=== PATIENT | male | born 1935 | race Caucasian/White ===

== ENCOUNTER 2021-06-28 23:28 | Observation (INO) ==
[2021-06-29 00:04] LABS: BASOPHILS % (AUTO) 0.5 % (0.2-1.0); EOSINOPHILS # (AUTO) 0.3 x10^3/uL (0.0-0.2); EOSINOPHILS % (AUTO) 3.9 % (0.9-2.9); HEMATOCRIT 44.1 % (42.0-54.0); HEMOGLOBIN 15.2 g/dL (13.5-18.0); LYMPHOCYTES # (AUTO) 0.7 X10^3/uL (1.3-2.9); LYMPHOCYTES % (AUTO) 8.6 % (21.0-51.0); MEAN CORPUSCULAR HEMOGLOBIN 31.8 pg (27.0-34.0); MEAN CORPUSCULAR HGB CONC 34.5 g/dL (33.0-35.0); MEAN CORPUSCULAR VOLUME 92.1 fL (80.0-100.0); MEAN PLATELET VOLUME 8.4 fL (7.4-11.0); MONOCYTES % (AUTO) 13.6 % (0.0-13.0); NEUTROPHILS # (AUTO) 5.6 x10^3/uL (2.2-4.8); NEUTROPHILS % (AUTO) 73.4 % (42.0-75.0); PLATELET COUNT 240 X10^3/uL (150.0-450.0); RED BLOOD COUNT 4.79 X10^6/uL (4.7-6.0); RED CELL DISTRIBUTION WIDTH 13.6 % (11.6-16.5); WHITE BLOOD COUNT 7.6 X10^3/uL (3.6-10.0)
--- NOTE | 2021-06-29 00:17 | DR.GENAD ---
HPI Time Seen Time Seen by Provider: 06/29/21 00:17 PCP Primary Care Physician: ROBERT HPI Comment HPI Comment: PATIENT IS 86YR OLD MALE WITH HISTORY OF CAD, S/P STENT TIMES 3, HTN AND BACK PAIN S/P SURGERY IN ER VIA EMS WITH GENERALIZED WEAKNESS, FREQUENT FALLS AND AMBULATORY DIFFICULTY FOR PAST FEW DAYS. PATIENT HAVE CHRONIC BACK PAIN BUT CARO ON DAILY MEDICATION FOR IT. CURRENTLY PRN ASPRIN IS HIS ONLY MEDICATION. DENIES FEVER. PATIENT SAID PAST FEW DAYS HAVING PROBLEM KEEPING HIMSELF STEADY WITHOUT FALLING. Complaint/Symptoms Chief Complaint Doctors Comments: GENERALIZED WEAKNESS AND FREQUENT FALLS PAST FEW DAYS. Chief Complaint:: EMS WAS DISPATCHED TO PTS HOME D/T GENERALIZED WEAKNESS AND PALENESS. PT STATES THAT HE HAS FALLEN TWICE TONIGHT AND ONCE EARLIER TODAY. PT UNABLE TO SIT UP IN BED ON HIS OWN. PT C/O OF BACK PAIN RATED 10/10. COVID-19 Coronavirus risk:travel/contact w/high risk person: No Has patient experienced Coronavirus symptoms: No Nurses notes reviewed Nurses Notes Review: Yes Source History Provided: Patient Mode of Arrival Mode of Arrival: EMS Timing Onset of Chief Complaint: 06/28/21 Came on: Suddenly Duration Duration: Constant Duration: Days Severity Severity: Moderate Modifying Factors Worsens:: EXERTION, Improves:: REST. Associated Signs and Symptoms Associated Signs and Symptoms: WEAKNESS. Other History Other History: CHRONIC BACK PAIN, S/P SURGERY, HTN, CAD, S/P CARDIAC STENTS. PMH PMH Past Medical History: Yes Past Medical History: Coronary Artery Disease and Hypertension Past Surgical History: Yes Surgical History: Angioplasty/Stents, Cholecystectomy and Ortho Surgery Past Surgical History Comment: STENTS X3, BACK SURGERY X3 Family History History of Family Medical Conditions: Yes Family Medical History: Coronary Artery Disease and Hypertension Social History Alcohol Use: None Do you use any recreational Drugs:: No Lives With: Family Lives Where: Home Travel Risk Coronavirus risk:travel/contact w/high risk person: No Has patient experienced Coronavirus symptoms: No Infectious screening Have you traveled outside the country in the last 6 months?: No Isolation: Standard ROS Review of Systems Constitutional: See HPI, Weakness and Fatigue; negative Fever Eyes: No Symptoms Reported and See HPI ENTM: No Symptoms Reported and See HPI; negative Nose Discharge and Nose Congestion Respiratoy: No Symptoms Reported, See HPI and Short of Breath (ON EXERTION.) Cardiovascular: No Symptoms Reported and See HPI; negative Edema and Palpitations Gastrointestinal/Abdominal: No Symptoms Reported and See HPI; negative Abdominal Pain, Diarrhea and Vomiting Genitourinary: No Symptoms Reported and See HPI; negative Dysuria Neurological: See HPI, Weakness and Dizziness Musculoskeletal: See HPI and Back Pain (LOWER BACK PAIN.) Integumentary: No Symptoms Reported and See HPI; negative Rash and Juandice Hematologic/Lymphatic: See HPI and Easy Bruising Endocrine: No Symptoms Reported and See HPI; negative Increased Thirst and Increased Urine Psychiatric: No Symptoms Reported and See HPI All Other Systems: Reviewed and Negative PE Vital Signs Vitals: Temperature 98.8 F Pulse Rate 75 Respiratory Rate 18 Blood Pressure 134/65 O2 Sat by Pulse Oximetry 100 General Limitations: No Limitations General Appearance: Alert and In Distress Head Head Exam: Normal Inspection, Atraumatic and Normocephalic Eyes Eye exam: Normal Appearance; negative Scleral Icterus and Conjunctival Injection ENT ENT Exam: Normal Exam, Normal Oropharynx, Normal External Ear Exam and TM's Normal Bilaterally External Ear Exam: Normal External Inspection; negative Mastoid Tenderness TM/Canal Exam: Bilateral: Normal Nose Exam: Normal Nose Exam and Other (NONE NOTED.) Mouth Exam: Normal Inspection; negative Lip Swelling and Tongue Swelling Throat Exam: Normal Inspection; negative Tonsillar Erythema, Tonsillomegaly and Tonsillar Exudate Neck Neck Exam: Normal Inspection and Trachea Midline; negative Tenderness Chest Chest Inspection: Normal Inspection and Symmetric Chest Wall Rise; negative Tenderness Respiratory Respiratory Exam: Normal Lung Sounds Bilat; negative Accessory Muscle Use, Chest Wall Tenderness and Respiratory Distress Respiratory Exam: Bilateral: Clear to Auscultation Cardiovascular Cardiovascular Exam: Regular Rate, Normal Rhythm and Normal Heart Sounds; negative Systolic Murmur and Diastolic Murmur Abdominal Exam Abdominal Exam: Normal Inspection, Normal Bowel Sounds and Soft; negative Tenderness Extremities Extremities Exam: Normal Inspection and Normal Capillary Refill Back Back Exam: Normal Inspection; negative (R) CVA Tenderness and (L) CVA Tenderness Neurologic Neurological Exam: Alert and Oriented X3; negative Motor Sensory Deficit Psychiatric Psychiatric Exam: Normal Affect and Normal Mood Skin Skin Exam: Warm, Dry, Intact and Normal Color MDM Differential Diagnosis Differential Diagnosis: GENERALIZED WEAKNESS, UTI, PNEUMONIA, MO, CHRONIC BACK PAIN/ ACUTE EXACERBN COURSE Treatment Treatment: SEE ORDERS. Consultation Consultation Comments: DISCUSSED PATIENT WITH DR. FRANCIS. HE WILL ADMIT PATIENT. Education/Counseling Education/Counseling: Patient and Family Educated On: Diagnosis ROR Labs Reviewed Laboratory Results Reviewed?: Yes Result Diagrams: 06/28/21 23:43 06/28/21 23:43 Laboratory: WBC 7.6 X10^3/uL (3.6-10.0) 06/28/21 23:43 RBC 4.79 X10^6/uL (4.7-6.0) 06/28/21 23:43 Hgb 15.2 g/dL (13.5-18.0) 06/28/21 23:43 Hct 44.1 % (42.0-54.0) 06/28/21 23:43 MCV 92.1 fL (80.0-100.0) 06/28/21 23:43 MCH 31.8 pg (27.0-34.0) 06/28/21 23:43 MCHC 34.5 g/dL (33.0-35.0) 06/28/21 23:43 RDW 13.6 % (11.6-16.5) 06/28/21 23:43 Plt Count 240 X10^3/uL (150.0-450.0) 06/28/21 23:43 MPV 8.4 fL (7.4-11.0) 06/28/21 23:43 Neut % (Auto) 73.4 % (42.0-75.0) 06/28/21 23:43 Lymph % (Auto) 8.6 % (21.0-51.0) L 06/28/21 23:43 Caroline % (Auto) 13.6 % (0.0-13.0) H 06/28/21 23:43 Eos % (Auto) 3.9 % (0.9-2.9) H 06/28/21 23:43 Baso % (Auto) 0.5 % (0.2-1.0) 06/28/21 23:43 Neut # (Auto) 5.6 x10^3/uL (2.2-4.8) H 06/28/21 23:43 Lymph # (Auto) 0.7 X10^3/uL (1.3-2.9) L 06/28/21 23:43 Caroline # (Auto) 1.0 x10^3/uL (0.3-0.8) H 06/28/21 23:43 Eos # (Auto) 0.3 x10^3/uL (0.0-0.2) H 06/28/21 23:43 Baso # (Auto) 0.0 X10^3/uL (0.0-0.1) 06/28/21 23:43 Absolute Nucleated RBC 0.9 /100WBC 06/28/21 23:43 Sodium 138 mmol/L (136-145) 06/28/21 23:43 Corrected Sodium 138 mmol/L (136-145) 06/28/21 23:43 Potassium 4.4 mmol/L (3.5-5.1) 06/28/21 23:43 Chloride 103 mmol/L (98-107) 06/28/21 23:43 Carbon Dioxide 23.6 mmol/L (21-32) 06/28/21 23:43 BUN 19 mg/dL (7-18) H 06/28/21 23:43 Creatinine 1.72 mg/dL (0.70-1.30) H 06/28/21 23:43 Est GFR (MDRD) Af Amer 49 (>60) L 06/28/21 23:43 Est GFR (MDRD) Non-Af 40 (>60) L 06/28/21 23:43 Glucose 120 mg/dL (65-99) H 06/28/21 23:43 Calcium 8.9 mg/dL (8.5-10.1) 06/28/21 23:43 Corrected Calcium TNP 06/28/21 23:43 Total Bilirubin 0.60 mg/dL (0.2-1.0) 06/28/21 23:43 AST 34 Units/L (15-37) 06/28/21 23:43 ALT 33 Units/L (12-78) 06/28/21 23:43 Alkaline Phosphatase 119 Units/L (46-116) H 06/28/21 23:43 Creatine Kinase 24 Units/L (39-308) L 06/28/21 23:43 CK-MB (CK-2) < 1.0 ng/mL (0-4.0) 06/28/21 23:43 CK/CKMB % Calc 4.2 % (<4) 06/28/21 23:43 Troponin I High Sens 18.4 ng/L (4.0-60.0) 06/28/21 23:43 Total Protein 7.2 g/dL (6.4-8.2) 06/28/21 23:43 Albumin 3.4 g/dL (3.4-5.0) 06/28/21 23:43 Globulin 3.8 g/dL (2.5-4.5) 06/28/21 23:43 Albumin/Globulin Ratio 0.9 Ratio (1.1-2.1) L 06/28/21 23:43 SARS CoV-2 RNA Rapid MIKE Positive (NEGATIVE) A 06/28/21 23:39 XRAY XRAY Interpreted by: Radiologist (REPORT NOTED AND DISCUSSED WITH PATIENT AND HIS BROTHER.) and Self EKG Rate: 101 [place]: Normal Rhythm: ST Block: 1 and IVCD Hypertrophy: None ST: Nonsp Opioid Opioid Risk Tool Age (Mathew box if 16-45): No History of Preadolescent Sexual Abuse: No Total: 0 Total Score Risk Category: Low Risk Copyright: Herman VERONICA predicting aberrant behaviors Diagnosis Discharge Problem: Generalized weakness, COVID-19 virus infection, Difficulty walking Chronic bilateral low back pain Qualifiers: Sciatica presence: without sciatica Qualified Code(s): M54.50 - Low back pain, unspecified
[2021-06-29 00:35] LABS: ALANINE AMINOTRANSFERASE 33 Units/L (12-78); ALBUMIN 3.4 g/dL (3.4-5.0); ALKALINE PHOSPHATASE 119 Units/L (46-116); ASPARTATE AMINO TRANSFERASE 34 Units/L (15-37); BLOOD UREA NITROGEN 19 mg/dL (7-18); CALCIUM 8.9 mg/dL (8.5-10.1); CARBON DIOXIDE 23.6 mmol/L (21-32); CHLORIDE 103 mmol/L (98-107); CKMB % 4.2 % (<4); COR NA(FOR HYPERGLY) 138 mmol/L (136-145); CREATINE KINASE 24 Units/L (39-308); CREATINE KINASE MB < 1.0 ng/mL (0-4.0); CREATININE 1.72 mg/dL (0.70-1.30); GLUCOSE 120 mg/dL (65-99); POTASSIUM 4.4 mmol/L (3.5-5.1); SODIUM 138 mmol/L (136-145); TOTAL PROTEIN 7.2 g/dL (6.4-8.2); eGFR NON BLACK RACES 40 (>60)
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
--- NOTE | 2021-06-29 03:27 | RAD ---
HISTORYWEAKNESS, FALL Relevant Clinical InformationSTUDYCHEST, 1 VIEWCOMPARISONFINDINGSThe trachea is midline. The cardiac silhouette is unremarkable. The lungs are clear without focal infiltrate or effusion. Pulmonary vasculature within normal limits. No pneumothorax. The bony thorax is unremarkable.IMPRESSIONNo acute cardiopulmonary findings .Electronically signed by: Jean Cervantes (Jun 29, 2021 03:25:50)
[2021-06-29] MEDS ORDERED: ZOFRAN INJ 4 MG VIAL ONE (04:23)
[2021-06-29] MEDS ORDERED: MORPHINE SULFATE INJ 2 MG INJ ONE (04:23)
[2021-06-29] MEDS ORDERED: MORPHINE SULFATE INJ 2 MG INJ IVP ONE (04:27)
[2021-06-29] MEDS ORDERED: ZOFRAN INJ 4 MG VIAL IVP ONE (04:27)
[2021-06-29] MEDS ORDERED: NS 1,000 ML IV 1,000 ML ONE (04:34)
[2021-06-29] MEDS: NS 1,000 ML IV 1,000 ML IV SCH ×2 (04:48→21:08)
[2021-06-29 06:26] VITALS: BMI 23.6
[2021-06-29] MEDS: SOLU-Medrol 40 MG VIAL IVP SCH ×3 (07:01→21:10)
[2021-06-29] MEDS: ZOSYN VIAL 3.375 GRAMS 3.375 G in NS 100 ML IV + SPIKE MINIBAG* 100 ML IV SCH ×3 (07:02→21:52)
[2021-06-29] MEDS: TRICOR TAB 160 MG PO SCH (08:21)
[2021-06-29] MEDS: PEPCID TAB 40 MG PO SCH ×2 (08:21→21:09)
[2021-06-29] MEDS: ASCORBIC ACID INJ MULTI-DOSE VIAL 1,500 MG in NS 100 ML IV 100 ML IV SCH ×3 (08:21→21:08)
[2021-06-29] MEDS: ZINC SULFATE PO SCH ×2 (08:22→21:09)
[2021-06-29] MEDS ORDERED: VITAMIN A PO SCH (09:00)
[2021-06-29] MEDS ORDERED: VITAMIN D (1.25MG) PO SCH (09:00)
[2021-06-29] MEDS ORDERED: VIBRAMYCIN PO SCH (09:00)
[2021-06-29] MEDS: BROVANA IN SCH ×2 (09:27→21:00)
[2021-06-29] MEDS: PULMICORT NEB TX 0.5 MG NEB SCH ×2 (09:27→21:00)
[2021-06-29] MEDS: LOVENOX INJ 30 MG SYR SC SCH ×2 (10:15→21:10)
[2021-06-29 10:31] LABS: ABG ALLEN TEST POS; ABG BASE EXCESS -1.6 mmol/L (-2.0-2.0); ABG HCO3 22.9 mmol/L (22-26)
[2021-06-29 16:09] LABS: BILIRUBIN,URINE NEGATIVE (NEGATIVE); BLOOD/HEMOGLOBIN,URINE NEGATIVE (NEGATIVE); GLUCOSE, URINE NEGATIVE (NEGATIVE); KETONES,URINE NEGATIVE (NEGATIVE); LEUKOCYTE ESTERASE ,URINE NEGATIVE (NEGATIVE); NITRITES,URINE NEGATIVE (NEGATIVE); PROTEIN,URINE NEGATIVE (NEGATIVE); UROBILINOGEN,URINE NORMAL (NORMAL)
[2021-06-29 16:16] LABS: APPEARANCE,URINE CLEAR (CLEAR); COLOR,URINE YELLOW (YELLOW)
[2021-06-29] MEDS ORDERED: REMDESIVIR IV ONE (16:28)
[2021-06-29] MEDS ORDERED: ZITHROMAX INJ 500 MG VIAL IV ONE (16:28)
[2021-06-29] MEDS ORDERED: NS 250 ML IV 500 ML IV ONE (16:29)
[2021-06-29] MEDS: ZITHROMAX INJ 500 MG VIAL 500 MG in NS 250 ML IV 250 ML IV SCH (16:34)
[2021-06-29] MEDS ORDERED: REMDESIVIR 200 MG in NS 250 ML IV 250 ML IV ONE (18:30)
[2021-06-30] MEDS: ASCORBIC ACID INJ MULTI-DOSE VIAL 1,500 MG in NS 100 ML IV 100 ML IV SCH ×4 (02:30→21:40)
--- NOTE | 2021-06-30 02:31 | DR.H&P ---
H&P - History & Physical for Day of: H&P Date: 06/29/21 - Chief Complaint Chief Complaint: sob, weakness - History of Present Illness History of Present Illness: Patient is an 86 year old white male who is being admitted dueto hypoxia, COVID, dyspnea, weakness. Patient reports he has been sick and then got extremely weak. At baseline patient reports weakness and difficulty ambulating with frequent falls. Patient ambulates with walker at home however even with walker he continues to fall. Patient reports history of spine issues and history of back surgery and chronic pain. COVID symptoms began a few days ago to include sob, cough, fatigue. PMH CAD, chronic low back pain, spine surgery. - Past Medical History Past Medical History: Coronary Artery Disease, Hypertension - Past Surgical History Surgical History: Angioplasty/Stents, Cholecystectomy, Ortho Surgery - Family History Family Medical History: Cancer, HI, Hypertension - Social History Type of Tobacco Use: Cigarettes How many years tobacco product used: 40 Alcohol Use: None Drug Use: None - Medications Home Medications: JACKELIN Inhibitors Allergy (Verified 06/29/21 09:28) CONTINUE taking the following medications allopurinol 300 mg PO DAILY 06/29/21 [History] amlodipine 5 mg PO DAILY 06/29/21 [History] aspirin 81 mg PO DAILY 06/29/21 [History] carvedilol 25 mg PO Q12H 06/29/21 [History] simvastatin 20 mg PO QHS 06/29/21 [History] - Review of Systems Constitutional: See HPI Eyes: See HPI ENT: See HPI Respiratory: See HPI Cardiovascular: See HPI Gastrointestinal: See HPI Genitourinary: See HPI Musculoskeletal: See HPI Skin: See HPI Neurological: See HPI - Physical Exam Vital Signs: Temperature 98.4 F Pulse Rate [Apical] 62 Pulse Rate 87 Respiratory Rate 15 Blood Pressure [Left Arm] 97/47 Blood Pressure 145/69 O2 Sat by Pulse Oximetry 94 Oriented: Normal, Time, Person, Place Eyes: Normal Ear: Normal Nose: Normal Throat: Red Respiratory: Rhonchi Throughout Cardiovascular: Normal : Normal Auscultation: Bowel Sounds: Normal Palpation: Normal Tenderness: Normal Skin: Decreased Turgur Musculoskeletal: Back:Thoracic, Back:Lumbar, Tender, Instability Psychiatric: Normal Mood Description: Calm Affect: Normal Speech Pattern: Clear, Appropriate - Assessment/Plan (1) Dyspnea Status: Acute (2) Hypoxia Status: Acute (3) Generalized weakness Status: Acute (4) COVID-19 virus infection Status: Acute Plan: IV abx and steroids. Cultures pending. Trend CXR and ABG. Trend labs. Supplemental oxygen. Remdesivir (5) Difficulty walking Status: Acute Plan: PT (6) KANNAN (acute kidney injury) Status: Acute Plan: Hydration - Allergies Allergies/Adverse Reactions: Allergies Allergy/AdvReac Type Severity Reaction Status Date / Time JACKELIN Inhibitors Allergy Verified 06/29/21 09:28
[2021-06-30] MEDS: ULTRAM PO PRN ×2 (02:34→19:31)
[2021-06-30] MEDS ORDERED: ZOCOR TAB 20 MG PO SCH (03:00)
[2021-06-30] MEDS ORDERED: COREG TAB 25 MG PO SCH (03:00)
[2021-06-30 05:09] LABS: BASOPHILS % (AUTO) 0.2 % (0.2-1.0); HEMATOCRIT 39.9 % (42.0-54.0); HEMOGLOBIN 13.6 g/dL (13.5-18.0); LYMPHOCYTES # (AUTO) 0.7 X10^3/uL (1.3-2.9); LYMPHOCYTES % (AUTO) 14.8 % (21.0-51.0); MEAN CORPUSCULAR HEMOGLOBIN 31.5 pg (27.0-34.0); MEAN CORPUSCULAR HGB CONC 34.1 g/dL (33.0-35.0); MEAN CORPUSCULAR VOLUME 92.6 fL (80.0-100.0); MEAN PLATELET VOLUME 8.9 fL (7.4-11.0); MONOCYTES # (AUTO) 0.2 x10^3/uL (0.3-0.8); MONOCYTES % (AUTO) 4.5 % (0.0-13.0); NEUTROPHILS # (AUTO) 3.6 x10^3/uL (2.2-4.8); NEUTROPHILS % (AUTO) 80.5 % (42.0-75.0); PLATELET COUNT 198 X10^3/uL (150.0-450.0); RED BLOOD COUNT 4.31 X10^6/uL (4.7-6.0); RED CELL DISTRIBUTION WIDTH 14.2 % (11.6-16.5); WHITE BLOOD COUNT 4.5 X10^3/uL (3.6-10.0)
[2021-06-30 05:11] LABS: ALBUMIN 2.7 g/dL (3.4-5.0); CALCIUM 8.2 mg/dL (8.5-10.1); CARBON DIOXIDE 22.2 mmol/L (21-32); COR CA(FOR HYPOALB) 9.2 mg/dL (8.5-10.1); CREATININE 2.01 mg/dL (0.70-1.30); POTASSIUM 4.3 mmol/L (3.5-5.1)
[2021-06-30 05:42] LABS: ABG ALLEN TEST POS; ABG BASE EXCESS -4.6 mmol/L (-2.0-2.0); ABG HCO3 20.3 mmol/L (22-26)
[2021-06-30] MEDS: SOLU-Medrol 40 MG VIAL IVP SCH ×3 (06:16→22:22)
[2021-06-30] MEDS: ZOSYN VIAL 3.375 GRAMS 3.375 G in NS 100 ML IV + SPIKE MINIBAG* 100 ML IV SCH ×3 (06:17→22:22)
--- NOTE | 2021-06-30 06:57 | RAD ---
HISTORYCOVID-19STUDYChest [id number]/13/2022FINDINGSContinued normal heart size and contour. There is no evidence for significant interstitial or airspace pulmonary involvement. No pleural fluid or pneumothorax noted.IMPRESSIONNo significant change or acute abnormality demonstrated.Electronically signed by: LAURA HERNANDEZ (Jun 30, 2021 06:56:09)
--- NOTE | 2021-06-30 07:00 | RAD ---
HISTORYFellSTUDYLumbar spine two viewsCOMPARISONLumbar CT 06/08/2021FINDINGSContinued normal segmentation and alignment without evidence for fracture or displacement. Stable position of surgical fusion hardware and intradiscal graft at L4-5, with laminectomy. Degenerative disc narrowing and osteophyte formation at T12-L1, and L5-S1.IMPRESSIONNo acute findings lumbar spine. Stable appearance of L4-5 fusion. Degenerative disc changes and spondylosis at thoracolumbar junction and L5-S1.Electronically signed by: LAURA HERNANDEZ (Jun 30, 2021 06:58:14)
[2021-06-30] MEDS: COREG TAB 25 MG PO SCH ×2 (08:55→21:40)
[2021-06-30] MEDS: ASPIRIN EC 81 MG PO SCH (08:55)
[2021-06-30] MEDS: LOVENOX INJ 30 MG SYR SC SCH (08:55)
[2021-06-30] MEDS: TRICOR TAB 160 MG PO SCH (08:56)
[2021-06-30] MEDS: NORVASC TAB 5 MG PO SCH (08:56)
[2021-06-30] MEDS: ZINC SULFATE PO SCH ×2 (08:56→21:41)
[2021-06-30] MEDS: ZITHROMAX INJ 500 MG VIAL 500 MG in NS 250 ML IV 250 ML IV SCH (08:56)
[2021-06-30] MEDS: REMDESIVIR 100 MG in NS 100 ML IV + SPIKE MINIBAG* 120 ML IV SCH (08:56)
[2021-06-30] MEDS: ZYLOPRIM PO SCH (08:56)
[2021-06-30] MEDS: PEPCID TAB 40 MG PO SCH ×2 (08:56→21:40)
[2021-06-30] MEDS ORDERED: REMDESIVIR 100 MG in NS 250 ML IV 250 ML IV SCH (09:00)
[2021-06-30] MEDS ORDERED: PATIENT'S HOME MEDICATION (Aspirin 81 mg Tablet) PO SCH (09:00)
[2021-06-30] MEDS: BROVANA IN SCH ×2 (09:15→20:44)
[2021-06-30] MEDS: PULMICORT NEB TX 0.5 MG NEB SCH ×2 (09:15→20:44)
[2021-06-30] MEDS ORDERED: LOVENOX INJ 30 MG SYR SC ONE (10:37)
[2021-06-30] MEDS: IVERMECTIN PO SCH (11:20)
[2021-06-30] MEDS: VITAMIN A PO SCH (11:20)
[2021-06-30] MEDS: NS 1,000 ML IV 1,000 ML IV SCH (14:27)
[2021-06-30] MEDS ORDERED: NORCO 5/325 MG TAB PO PRN (21:27)
[2021-06-30] MEDS: LOVENOX INJ 60 MG SYR SC SCH (21:40)
[2021-06-30] MEDS: ZOCOR TAB 20 MG PO SCH (21:41)
[2021-07-01] MEDS: ASCORBIC ACID INJ MULTI-DOSE VIAL 1,500 MG in NS 100 ML IV 100 ML IV SCH ×4 (02:32→21:02)
[2021-07-01] MEDS: NS 1,000 ML IV 1,000 ML IV SCH ×2 (02:32→13:07)
[2021-07-01] MEDS: ZOSYN VIAL 3.375 GRAMS 3.375 G in NS 100 ML IV + SPIKE MINIBAG* 100 ML IV SCH ×3 (05:25→21:06)
[2021-07-01] MEDS: SOLU-Medrol 40 MG VIAL IVP SCH ×3 (05:25→21:05)
[2021-07-01 05:34] LABS: BASOPHILS % (AUTO) 0.2 % (0.2-1.0); HEMATOCRIT 37.4 % (42.0-54.0); HEMOGLOBIN 12.6 g/dL (13.5-18.0); LYMPHOCYTES # (AUTO) 1.2 X10^3/uL (1.3-2.9); LYMPHOCYTES % (AUTO) 7.1 % (21.0-51.0); MEAN CORPUSCULAR HEMOGLOBIN 31.4 pg (27.0-34.0); MEAN CORPUSCULAR HGB CONC 33.6 g/dL (33.0-35.0); MEAN CORPUSCULAR VOLUME 93.2 fL (80.0-100.0); MEAN PLATELET VOLUME 9.2 fL (7.4-11.0); MONOCYTES # (AUTO) 0.6 x10^3/uL (0.3-0.8); MONOCYTES % (AUTO) 3.2 % (0.0-13.0); NEUTROPHILS # (AUTO) 15.3 x10^3/uL (2.2-4.8); NEUTROPHILS % (AUTO) 89.5 % (42.0-75.0); PLATELET COUNT 210 X10^3/uL (150.0-450.0); RED BLOOD COUNT 4.01 X10^6/uL (4.7-6.0); RED CELL DISTRIBUTION WIDTH 14.3 % (11.6-16.5)
[2021-07-01 05:44] LABS: ALBUMIN 2.4 g/dL (3.4-5.0); CALCIUM 7.7 mg/dL (8.5-10.1); CARBON DIOXIDE 21.7 mmol/L (21-32); CREATININE 1.78 mg/dL (0.70-1.30); TOTAL PROTEIN 5.3 g/dL (6.4-8.2)
[2021-07-01 06:19] LABS: WHITE BLOOD COUNT 17.1 X10^3/uL (3.6-10.0)
[2021-07-01] MEDS: BROVANA IN SCH ×2 (08:40→20:15)
[2021-07-01] MEDS: PULMICORT NEB TX 0.5 MG NEB SCH ×2 (08:40→20:15)
[2021-07-01] MEDS: ASPIRIN EC 81 MG PO SCH (10:24)
[2021-07-01] MEDS: COREG TAB 25 MG PO SCH ×2 (10:24→21:03)
[2021-07-01] MEDS: IVERMECTIN PO SCH (10:25)
[2021-07-01] MEDS: LOVENOX INJ 60 MG SYR SC SCH ×2 (10:25→21:04)
[2021-07-01] MEDS: NORVASC TAB 5 MG PO SCH (10:25)
[2021-07-01] MEDS: PEPCID TAB 40 MG PO SCH ×2 (10:26→21:04)
[2021-07-01] MEDS: VITAMIN A PO SCH ×2 (10:26→10:28)
[2021-07-01] MEDS: TRICOR TAB 160 MG PO SCH (10:26)
[2021-07-01] MEDS: REMDESIVIR 100 MG in NS 100 ML IV + SPIKE MINIBAG* 120 ML IV SCH (10:26)
[2021-07-01] MEDS: VITAMIN D3 125 mcg (5,000 UNITS) PO SCH (10:27)
[2021-07-01] MEDS: ZINC SULFATE PO SCH ×2 (10:28→21:04)
[2021-07-01] MEDS: ZYLOPRIM PO SCH (10:28)
[2021-07-01] MEDS: VSL#3 PO SCH (10:30)
[2021-07-01] MEDS ORDERED: NS 100 ML IV + SPIKE MINIBAG* 100 ML IV ONE (20:49)
[2021-07-01] MEDS: ZOCOR TAB 20 MG PO SCH (21:05)
[2021-07-02] MEDS: ASCORBIC ACID INJ MULTI-DOSE VIAL 1,500 MG in NS 100 ML IV 100 ML IV SCH ×4 (02:43→21:10)
[2021-07-02] MEDS: NS 1,000 ML IV 1,000 ML IV SCH (04:54)
[2021-07-02] MEDS: SOLU-Medrol 40 MG VIAL IVP SCH ×3 (05:00→21:10)
[2021-07-02] MEDS: ZOSYN VIAL 3.375 GRAMS 3.375 G in NS 100 ML IV + SPIKE MINIBAG* 100 ML IV SCH ×3 (05:01→21:10)
[2021-07-02 05:19] LABS: BASOPHILS % (AUTO) 0.2 % (0.2-1.0); HEMATOCRIT 40.7 % (42.0-54.0); HEMOGLOBIN 13.6 g/dL (13.5-18.0); LYMPHOCYTES # (AUTO) 1.3 X10^3/uL (1.3-2.9); LYMPHOCYTES % (AUTO) 7.3 % (21.0-51.0); MEAN CORPUSCULAR HEMOGLOBIN 30.8 pg (27.0-34.0); MEAN CORPUSCULAR HGB CONC 33.4 g/dL (33.0-35.0); MEAN CORPUSCULAR VOLUME 92.1 fL (80.0-100.0); MEAN PLATELET VOLUME 9.4 fL (7.4-11.0); MONOCYTES # (AUTO) 0.5 x10^3/uL (0.3-0.8); NEUTROPHILS # (AUTO) 15.9 x10^3/uL (2.2-4.8); NEUTROPHILS % (AUTO) 89.5 % (42.0-75.0); PLATELET COUNT 209 X10^3/uL (150.0-450.0); RED BLOOD COUNT 4.42 X10^6/uL (4.7-6.0); RED CELL DISTRIBUTION WIDTH 14.8 % (11.6-16.5); WHITE BLOOD COUNT 17.7 X10^3/uL (3.6-10.0)
[2021-07-02 05:27] LABS: ALBUMIN 2.5 g/dL (3.4-5.0); CALCIUM 7.6 mg/dL (8.5-10.1); CARBON DIOXIDE 20.6 mmol/L (21-32); COR CA(FOR HYPOALB) 8.8 mg/dL (8.5-10.1); CREATININE 1.76 mg/dL (0.70-1.30); POTASSIUM 3.4 mmol/L (3.5-5.1); TOTAL PROTEIN 5.5 g/dL (6.4-8.2)
[2021-07-02] MEDS ORDERED: POTASSIUM CHL 40 MEQ/NS 0.45% 500 ML IV PRN (06:51)
[2021-07-02] MEDS ORDERED: POTASSIUM CHL 60 MEQ/NS 0.45% 500 ML IV PRN (06:51)
[2021-07-02] MEDS ORDERED: KLOR-CON PO PRN (06:51)
[2021-07-02] MEDS ORDERED: MICRO K EXTEN CAP 10 MEQ PO PRN (06:51)
[2021-07-02] MEDS ORDERED: POTASSIUM CHLORIDE LIQ PO PRN (06:51)
[2021-07-02] MEDS ORDERED: K-RIDER 10 MEQ/NS 100 ML 10 MEQ/100 ML BAG IV PRN (06:51)
[2021-07-02] MEDS ORDERED: K-DUR TAB 20 MEQ PO PRN (06:51)
[2021-07-02] MEDS ORDERED: MAGNESIUM SULFATE 1 GRAM/100 mL PREMIX 1 G/100 ML BAG IV PRN (06:53)
[2021-07-02] MEDS: ZITHROMAX INJ 500 MG VIAL 500 MG in NS 250 ML IV 250 ML IV SCH (07:43)
[2021-07-02] MEDS: BROVANA IN SCH ×2 (08:24→21:15)
[2021-07-02] MEDS: PULMICORT NEB TX 0.5 MG NEB SCH ×2 (08:25→21:15)
[2021-07-02] MEDS: ASPIRIN EC 81 MG PO SCH (09:39)
[2021-07-02] MEDS: COREG TAB 25 MG PO SCH ×2 (09:40→21:10)
[2021-07-02] MEDS: ZINC SULFATE PO SCH ×2 (09:40→21:10)
[2021-07-02] MEDS: IVERMECTIN PO SCH (09:40)
[2021-07-02] MEDS: PEPCID TAB 40 MG PO SCH ×2 (09:40→21:10)
[2021-07-02] MEDS: NORVASC TAB 5 MG PO SCH (09:40)
[2021-07-02] MEDS: ZYLOPRIM PO SCH (09:41)
[2021-07-02] MEDS: TRICOR TAB 160 MG PO SCH (09:41)
[2021-07-02] MEDS: VSL#3 PO SCH (09:41)
[2021-07-02] MEDS: REMDESIVIR 100 MG in NS 100 ML IV + SPIKE MINIBAG* 120 ML IV SCH (09:41)
[2021-07-02] MEDS: VITAMIN D3 125 mcg (5,000 UNITS) PO SCH (09:41)
[2021-07-02] MEDS: VITAMIN A PO SCH ×2 (09:41)
[2021-07-02] MEDS: LOVENOX INJ 30 MG SYR SC SCH (09:44)
[2021-07-02 09:49] LABS: ABG ALLEN TEST POS; ABG BASE EXCESS -2.9 mmol/L (-2.0-2.0); ABG HCO3 20.8 mmol/L (22-26)
--- NOTE | 2021-07-02 13:38 | PCM.PROG ---
Progress Note - Subjective Subjective: Patient is an 86 year old white male who was admitted due to covid. Patient is being treated with IV abx and steroids, oxygen and duo nebs. Patient reports he does feel bad today. Patient continues to be weak with limited ability to ambulate well. PT has been consulted. WBC elevated likely steroid induced. Questions answered and concerns addressed. - Past Medical Family Social History Past Med/Fam/Surg Hx: No changes since H&P Allergies: Allergies JACKELIN Inhibitors Allergy (Verified 06/29/21 09:28) - Review of Systems ROS: No change since H&P - Vital Signs and I&O's Vital Signs: Temperature 97.8 F Pulse Rate [Apical] 76 Pulse Rate 94 Respiratory Rate 16 Blood Pressure [Left Arm] 186/82 Blood Pressure 145/69 O2 Sat by Pulse Oximetry 95 Intake and Output: Intake & Output 06/29/21 06/30/21 07/01/21 07/02/21 23:59 23:59 23:59 23:59 Intake Total 2580 / 2580 2550 / 2550 3304 / 3304 488 / 488 Output Total 350 / 350 Balance 2230 / 2230 2550 / 2550 3304 / 3304 488 / 488 - Physical Exam Oriented: Normal, Time, Person, Place Eyes: Normal Ear: Normal Nose: Normal Throat: Normal Respiratory: Generalized, Rhonchi Cardiovascular: Normal : Normal Auscultation: Bowel Sounds: Normal Palpation: Normal Tenderness: Normal Skin: Decreased Turgur Musculoskeletal: Back:Thoracic, Back:Lumbar, Tender, Instability Psychiatric: Normal Mood Description: Calm Affect: Normal Speech Pattern: Clear, Appropriate - Laboratory and Diagnostics Result Diagrams: 07/02/21 04:37 07/02/21 04:37 Labs: Laboratory WBC 17.7 X10^3/uL (3.6-10.0) H 07/02/21 04:37 RBC 4.42 X10^6/uL (4.7-6.0) L 07/02/21 04:37 Hgb 13.6 g/dL (13.5-18.0) 07/02/21 04:37 Hct 40.7 % (42.0-54.0) L 07/02/21 04:37 MCV 92.1 fL (80.0-100.0) 07/02/21 04:37 MCH 30.8 pg (27.0-34.0) 07/02/21 04:37 MCHC 33.4 g/dL (33.0-35.0) 07/02/21 04:37 RDW 14.8 % (11.6-16.5) 07/02/21 04:37 Plt Count 209 X10^3/uL (150.0-450.0) 07/02/21 04:37 MPV 9.4 fL (7.4-11.0) 07/02/21 04:37 Neut % (Auto) 89.5 % (42.0-75.0) H 07/02/21 04:37 Lymph % (Auto) 7.3 % (21.0-51.0) L 07/02/21 04:37 [place] % (Auto) 3.0 % (0.0-13.0) 07/02/21 04:37 Eos % (Auto) 0.0 % (0.9-2.9) L 07/02/21 04:37 Baso % (Auto) 0.2 % (0.2-1.0) 07/02/21 04:37 Neut # (Auto) 15.9 x10^3/uL (2.2-4.8) H 07/02/21 04:37 Lymph # (Auto) 1.3 X10^3/uL (1.3-2.9) 07/02/21 04:37 [place] # (Auto) 0.5 x10^3/uL (0.3-0.8) 07/02/21 04:37 Eos # (Auto) 0.0 x10^3/uL (0.0-0.2) 07/02/21 04:37 Baso # (Auto) 0.0 X10^3/uL (0.0-0.1) 07/02/21 04:37 Absolute Nucleated RBC 0.0 /100WBC 07/02/21 04:37 Sample Site Lr 07/02/21 09:43 ABG pH 7.420 (7.35-7.45) 07/02/21 09:43 ABG pCO2 32.0 mmHg (35.0-45.0) L 07/02/21 09:43 ABG pO2 85.0 mmHg (80.0-100.0) 07/02/21 09:43 ABG HCO3 20.8 mmol/L (22-26) L 07/02/21 09:43 ABG O2 Saturation 97.0 % (90-100) 07/02/21 09:43 ABG Base Excess -2.9 mmol/L (-2.0-2.0) L 07/02/21 09:43 Sha Test Pos 07/02/21 09:43 A-a Gradient 75.0 mmHg 07/02/21 09:43 FiO2 28.0 07/02/21 09:43 Blood Gas Comments Pt hermelindo well cdn 07/02/21 09:43 Sodium 148 mmol/L (136-145) H 07/02/21 04:37 Corrected Sodium 149 mmol/L (136-145) H 07/02/21 04:37 Potassium 3.4 mmol/L (3.5-5.1) L 07/02/21 04:37 Chloride 114 mmol/L (98-107) H 07/02/21 04:37 Carbon Dioxide 20.6 mmol/L (21-32) L 07/02/21 04:37 BUN 23 mg/dL (7-18) H 07/02/21 04:37 Creatinine 1.76 mg/dL (0.70-1.30) H 07/02/21 04:37 Est GFR (MDRD) Af Amer 48 (>60) L 07/02/21 04:37 Est GFR (MDRD) Non-Af 39 (>60) L 07/02/21 04:37 Glucose 143 mg/dL (65-99) H 07/02/21 04:37 Calcium 7.6 mg/dL (8.5-10.1) L 07/02/21 04:37 Corrected Calcium 8.8 mg/dL (8.5-10.1) 07/02/21 04:37 Magnesium 1.5 mg/dL (1.7-2.9) L 07/02/21 04:37 Total Bilirubin 0.30 mg/dL (0.2-1.0) 07/02/21 04:37 AST 19 Units/L (15-37) 07/02/21 04:37 ALT 30 Units/L (12-78) 07/02/21 04:37 Alkaline Phosphatase 85 Units/L (46-116) 07/02/21 04:37 Creatine Kinase 24 Units/L (39-308) L 06/28/21 23:43 CK-MB (CK-2) < 1.0 ng/mL (0-4.0) 06/28/21 23:43 CK/CKMB % Calc 4.2 % (<4) 06/28/21 23:43 Troponin I High Sens 18.4 ng/L (4.0-60.0) 06/28/21 23:43 C-Reactive Protein 5.80 mg/L (0-3.0) H 07/02/21 04:37 Total Protein 5.5 g/dL (6.4-8.2) L 07/02/21 04:37 Albumin 2.5 g/dL (3.4-5.0) L 07/02/21 04:37 Globulin 3.0 g/dL (2.5-4.5) 07/02/21 04:37 Albumin/Globulin Ratio 0.8 Ratio (1.1-2.1) L 07/02/21 04:37 Specimen Type Clean catch urine 06/29/21 15:58 Urine Color Yellow (YELLOW) 06/29/21 15:58 Urine Appearance Clear (CLEAR) 06/29/21 15:58 Urine pH 5.0 (5.0 - 8.0) 06/29/21 15:58 Ur Specific [place] 1.020 (1.000-1.030) 06/29/21 15:58 Urine Protein Negative (NEGATIVE) 06/29/21 15:58 Urine Glucose (UA) Negative (NEGATIVE) 06/29/21 15:58 Urine Ketones Negative (NEGATIVE) 06/29/21 15:58 Urine Occult Blood Negative (NEGATIVE) 06/29/21 15:58 Urine Nitrite Negative (NEGATIVE) 06/29/21 15:58 Urine Bilirubin Negative (NEGATIVE) 06/29/21 15:58 Urine Urobilinogen Normal (NORMAL) 06/29/21 15:58 Ur Leukocyte Esterase Negative (NEGATIVE) 06/29/21 15:58 SARS CoV-2 RNA Rapid MIKE Positive (NEGATIVE) A 06/28/21 23:39 - Plan (1) Dyspnea Status: Acute Plan: Trend ABG and CXR. Supplemental oxygen. Duo nebs (2) Hypoxia Status: Acute Plan: See above (3) Generalized weakness Status: Acute Plan: PT (4) COVID-19 virus infection Status: Acute Plan: IV abx and steroids. Trend CXR and ABG. Trend labs. Supplemental oxygen. Remdesivir-complete (5) Difficulty walking Status: Acute Plan: Lumbar imaging negative for acute findings. PT (6) KANNAN (acute kidney injury) Status: Acute Plan: Hydration (7) Leukocytosis Status: Acute Plan: Likely steroid induced; monitor. Decrease steroids (8) CKD (chronic kidney disease) Status: Acute Plan: Monitor
[2021-07-02] MEDS ORDERED: NS 50 ML IV 50 ML IV ONE (14:09)
[2021-07-02] MEDS: LOVENOX INJ 60 MG SYR SC SCH (14:29)
[2021-07-02] MEDS ORDERED: NS IV ONE (21:01)
[2021-07-02] MEDS: ZOCOR TAB 20 MG PO SCH (21:10)
[2021-07-03] MEDS ORDERED: NS IV ONE (02:28)
[2021-07-03] MEDS: ASCORBIC ACID INJ MULTI-DOSE VIAL 1,500 MG in NS 100 ML IV 100 ML IV SCH ×2 (03:00→09:16)
[2021-07-03] MEDS ORDERED: NS 100 ML IV + SPIKE MINIBAG* 100 ML IV ONE (04:46)
[2021-07-03 04:52] LABS: ABG ALLEN TEST POS; ABG BASE EXCESS -2.8 mmol/L (-2.0-2.0); ABG HCO3 20.6 mmol/L (22-26)
[2021-07-03 05:19] LABS: BASOPHILS # (AUTO) 0.1 X10^3/uL (0.0-0.1); BASOPHILS % (AUTO) 0.9 % (0.2-1.0); HEMATOCRIT 38.8 % (42.0-54.0); HEMOGLOBIN 13.2 g/dL (13.5-18.0); LYMPHOCYTES % (AUTO) 7.1 % (21.0-51.0); MEAN CORPUSCULAR HEMOGLOBIN 31.3 pg (27.0-34.0); MEAN CORPUSCULAR HGB CONC 34.1 g/dL (33.0-35.0); MEAN CORPUSCULAR VOLUME 91.8 fL (80.0-100.0); MEAN PLATELET VOLUME 9.9 fL (7.4-11.0); MONOCYTES # (AUTO) 0.4 x10^3/uL (0.3-0.8); MONOCYTES % (AUTO) 2.6 % (0.0-13.0); NEUTROPHILS # (AUTO) 12.2 x10^3/uL (2.2-4.8); NEUTROPHILS % (AUTO) 89.4 % (42.0-75.0); PLATELET COUNT 192 X10^3/uL (150.0-450.0); RED BLOOD COUNT 4.23 X10^6/uL (4.7-6.0); RED CELL DISTRIBUTION WIDTH 14.7 % (11.6-16.5); WHITE BLOOD COUNT 13.6 X10^3/uL (3.6-10.0)
[2021-07-03] MEDS: ZOSYN VIAL 3.375 GRAMS 3.375 G in NS 100 ML IV + SPIKE MINIBAG* 100 ML IV SCH (05:34)
[2021-07-03] MEDS: SOLU-Medrol 40 MG VIAL IVP SCH (05:34)
[2021-07-03 05:36] LABS: ALBUMIN 2.3 g/dL (3.4-5.0); CALCIUM 7.5 mg/dL (8.5-10.1); CARBON DIOXIDE 20.6 mmol/L (21-32); COR CA(FOR HYPOALB) 8.9 mg/dL (8.5-10.1); CREATININE 1.74 mg/dL (0.70-1.30); MAGNESIUM 1.9 mg/dL (1.7-2.9); POTASSIUM 3.5 mmol/L (3.5-5.1); TOTAL PROTEIN 5.3 g/dL (6.4-8.2)
[2021-07-03 05:47] LABS: PLATELET MORPHOLOGY COMMENT NORMAL (NORMAL)
--- NOTE | 2021-07-03 07:39 | RAD ---
HISTORYCOVID+STUDYCHEST, 1 [id number]/15/2022.TECHNIQUEAP view of the chestFINDINGSThe cardiac and mediastinal contours appear stable. No significant change in mild scattered hazy and interstitial pulmonary opacities. No definite pleural effusion or pneumothorax.IMPRESSIONNo significant change. Findings can be seen with mild COVID 19 pneumonia.Electronically signed by: Abhishek Macias (Jul 03, 2021 07:38:01)
[2021-07-03] MEDS ORDERED: PEPCID TAB 40 MG PO SCH (09:00)
[2021-07-03] MEDS: ASPIRIN EC 81 MG PO SCH (09:16)
[2021-07-03] MEDS: COREG TAB 25 MG PO SCH (09:16)
[2021-07-03] MEDS: LOVENOX INJ 30 MG SYR SC SCH (09:16)
[2021-07-03] MEDS: NORVASC TAB 5 MG PO SCH (09:16)
[2021-07-03] MEDS: TRICOR TAB 160 MG PO SCH (09:17)
[2021-07-03] MEDS: REMDESIVIR 100 MG in NS 100 ML IV + SPIKE MINIBAG* 120 ML IV SCH (09:17)
[2021-07-03] MEDS: ZINC SULFATE PO SCH (09:18)
[2021-07-03] MEDS: ZYLOPRIM PO SCH (09:18)
[2021-07-03] MEDS: VSL#3 PO SCH (09:18)
[2021-07-03] MEDS: VITAMIN D3 125 mcg (5,000 UNITS) PO SCH (09:18)
[2021-07-03] MEDS: VITAMIN A PO SCH ×2 (09:20)
[2021-07-03] MEDS: BROVANA IN SCH (09:35)
[2021-07-03] MEDS: PULMICORT NEB TX 0.5 MG NEB SCH (09:35)
--- NOTE | 2021-07-03 10:54 | W.DIS.FURT ---
Discharge Plan - Discharge Plan Hospital Course: Admit date 06/29/21 Discharge date 07/03/21 DOS 07/03/21 Admit diagnosis1) Dyspnea (2) Hypoxia (3) Generalized weakness (4) COVID-19 virus infection (5) Difficulty walking (6) KANNAN (acute kidney injury) Discharge diagnosis1) Dyspnea (2) Hypoxia (3) Generalized weakness (4) COVID-19 virus infection (5) Difficulty walking (6) KANNAN (acute kidney injury) (7) Leukocytosis (8) CKD (chronic kidney disease) Hospital course Patient is a 86 year old male who was admitted due to frequent falls and generalized weakness. Patient did test positive for COVID 19. CT brain negative for acute process. Cultures negative. ABG normal, labs improved. WBC did elevated which is likely secondary to steroids; quickly improved. PT evaluated patient. Patient does have chronic lumbar diagnosis; xray did not reveal acute fracture. Patient was discharged home to follow up outpatient with antibiotics. Patient tolerated nasal cannula and room air oxygen. Discharge time >35mins. Disposition: [address] [place] [address] Condition: Stable Health Concerns: Post Hospitalization: new medications and changes needed to prevent readmission or further decline. Pt educated and given instructions on all concerns. Care Plan Goals: Problem: Respiratory Complications Goal: Improved Uncomplicated Respiratory Status Instructions: Follow provided instructions. Follow up with primary physician as directed. Contact primary care physician or report to the closest Emergency Room if condition worsens. Plan of Treatment: Continue with present treatment and follow up plan. Pt is to keep follow up appointment as instructed and take medications as ordered. Prescriptions: New azithromycin [Zithromax] 250 mg Tablet 250 mg PO DAILY Qty: 7 RF: 0 Transmission Status: Received by [facility] levofloxacin 250 mg Tablet 250 mg PO Q24H Qty: 7 RF: 0 Transmission Status: Received by [facility] Continued allopurinol 300 mg Tablet 300 mg PO DAILY amlodipine 5 mg Tablet 5 mg PO DAILY aspirin 81 mg Tablet 81 mg PO DAILY carvedilol 25 mg Tablet 25 mg PO Q12H simvastatin 20 mg Tablet 20 mg PO QHS - Follow ups/Referrals Follow ups/Referrals: KALA NARANJO [Nurse Practitioner] - 07/10/21 3:45 pm - Instructions Instructions: Shortness of Breath, Adult, [id number], Antibiotic Medicine, Adult, COVID-19 Frequently Asked Questions, How to Wear and Take Off Your Mask - [facility] (09/14/2020), Weakness, [id number], 10 Things You Can Do to Manage Your COVID-19 Symptoms at Home - [facility] (12/15/2019), COVID-19, You've Been Prescribed an Antibiotic in the Hospital for an Infection - [facility], Managing Your Hypertension Forms: Excuse From Work or School, Precautions for COVID19, [facility], Patient Portal, Social Distancing Print Language: RWANDAN
[2021-07-03 12:02] VITALS: BP 177/74; PULSE 61; TEMP 97.7; O2SAT 92
== END 2021-07-03 11:50 | disposition home health service (06) ==
LOC: ER 23:28 → ICU 23:28
PROVIDERS: ADMIT Internal Medicine; ATTEND Internal Medicine

== ENCOUNTER 2021-07-19 16:07 | Observation (INO) ==
--- NOTE | 2021-07-19 16:37 | DR.DIZZY ---
HPI Time seen Time Seen by Provider: 07/19/21 16:27 PCP Primary Care Physician: CÉSAR Complaint Chief Complaint Doctor Comments: 86 y/o male brought in for weakness and shortness of breath. Per brother, he has been having issues over the past year, but getting worse. Pt denies chest pain, cough, fever, dyspnea. Has been falling a lot due to wekaness. Was + for covid 2 weeks ago, hopsitalized then. Having pain, swelling of the R foot, + h/o gout in the distant past. EMS found pt to have a low pulse ox in the 80s. Better with O2. Chief Complaint:: EMS PICKED UP PATIENT WITH COMPLAINT OF WEAKNESS,SOB,AND COUGH.EMS STATES HIS SATS ON ARRIVAL WERE 82-83% 6L SATS INCREASED TO 94-95% OXYGEN NOW ON 2L. COVID-19 Coronavirus risk:travel/contact w/high risk person: Yes Coronavirus symptoms experienced: Shortness of Breath Nurses Notes Reviewed Nurses Notes Review: Yes Source History Provided: Patient, Family Member and EMS Mode of Arrival Mode of Arrival: EMS Timing Onset of Chief Complaint: 07/19/21 Came on: Gradually Duration Duration: Intermittent Location of Weakness Weakness Location: Generalized Context Stroke Symptoms: None PMH PMH Past Medical History: Yes Past Medical History: Coronary Artery Disease and Hypertension Past Surgical History: Yes Surgical History: Angioplasty/Stents, Cholecystectomy and Ortho Surgery Family History History of Family Medical Conditions: Yes Family Medical History: Cancer, [place] and Hypertension Social History Do you use any recreational Drugs:: No Lives Where: Home Infectious screening In the last 2 months have you had wt loss of >10#?: NO Have you had fever, night sweats or hemotysis?: No Have you traveled outside the country in the last 6 months?: No Isolation: Droplet ROS Review of Systems Constitutional: Malaise and Weakness Eyes: No Symptoms Reported ENTM: No Symptoms Reported Respiratoy: Short of Breath Cardiovascular: No Symptoms Reported Gastrointestinal/Abdominal: No Symptoms Reported Genitourinary: No Symptoms Reported Neurological: Weakness and Problems Walking Musculoskeletal: Right and Foot Integumentary: No Symptoms Reported Hematologic/Lymphatic: No Symptoms Reported Psychiatric: No Symptoms Reported All Other Systems: Reviewed and Negative PE Vital Signs Vitals: Blood Pressure [Left Arm] 159/70 General Limitations: No Limitations General Appearance: Alert and In No Apparent Distress Head Head Exam: Normal Inspection Eyes Eye exam: Normal Appearance, PERRL and EOMI ENT ENT Exam: Normal Exam Neck Neck Exam: Normal Inspection and Full ROM Chest Chest Inspection: Normal Inspection; negative Tenderness Respiratory Respiratory Exam: Normal Lung Sounds Bilat; negative Accessory Muscle Use and Respiratory Distress Respiratory Exam: Bilateral: Clear to Auscultation Cardiovascular Cardiovascular Exam: Regular Rate, Normal Rhythm and Normal Heart Sounds Abdominal Exam Abdominal Exam: Normal Inspection, Normal Bowel Sounds and Soft; negative Tenderness Extremeties Extremities Exam: Edema (R foot, with erythema and tenderness of R 1st MTP joint.) Neurologic Neurological Exam: Alert and CN II-XII Intact; negative Motor Sensory Deficit MDM Differential Diagnosis Differential Diagnosis: Dehydration and Electrolyte disorder Differential Diagnosis Comment: gout, covid pneumonia COURSE Treatment Treatment: 86 y/o male here for evaluation of weakness and dyspnea. W/u initiated. [id number] - brother here, states pt willing to be admitted to [place] for vermin exterminator care. Discussed with his can WAGNER, Dr Parkinson. Will admit the pt. ROR Labs Reviewed Laboratory Results Reviewed?: Yes Result Diagrams: 07/19/21 16:40 07/19/21 16:40 Laboratory: WBC 8.3 X10^3/uL (3.6-10.0) 07/19/21 16:40 RBC 3.83 X10^6/uL (4.7-6.0) L 07/19/21 16:40 Hgb 12.1 g/dL (13.5-18.0) L 07/19/21 16:40 Hct 35.6 % (42.0-54.0) L 07/19/21 16:40 MCV 92.8 fL (80.0-100.0) 07/19/21 16:40 MCH 31.5 pg (27.0-34.0) 07/19/21 16:40 MCHC 33.9 g/dL (33.0-35.0) 07/19/21 16:40 RDW 14.1 % (11.6-16.5) 07/19/21 16:40 Plt Count 262 X10^3/uL (150.0-450.0) 07/19/21 16:40 MPV 8.4 fL (7.4-11.0) 07/19/21 16:40 Neut % (Auto) 73.4 % (42.0-75.0) 07/19/21 16:40 Lymph % (Auto) 12.8 % (21.0-51.0) L 07/19/21 16:40 [place] % (Auto) 9.7 % (0.0-13.0) 07/19/21 16:40 Eos % (Auto) 3.0 % (0.9-2.9) H 07/19/21 16:40 Baso % (Auto) 1.1 % (0.2-1.0) H 07/19/21 16:40 Neut # (Auto) 6.1 x10^3/uL (2.2-4.8) H 07/19/21 16:40 Lymph # (Auto) 1.1 X10^3/uL (1.3-2.9) L 07/19/21 16:40 [place] # (Auto) 0.8 x10^3/uL (0.3-0.8) 07/19/21 16:40 Eos # (Auto) 0.2 x10^3/uL (0.0-0.2) 07/19/21 16:40 Baso # (Auto) 0.1 X10^3/uL (0.0-0.1) 07/19/21 16:40 Absolute Nucleated RBC 0.0 /100WBC 07/19/21 16:40 D-Dimer 1.91 ug/ml (0.0-0.57) H* 07/19/21 16:40 Sodium 144 mmol/L (136-145) 07/19/21 16:40 Corrected Sodium 145 mmol/L (136-145) 07/19/21 16:40 Potassium 4.6 mmol/L (3.5-5.1) 07/19/21 16:40 Chloride 111 mmol/L (98-107) H 07/19/21 16:40 Carbon Dioxide 25.4 mmol/L (21-32) 07/19/21 16:40 BUN 37 mg/dL (7-18) H 07/19/21 16:40 Creatinine 1.89 mg/dL (0.70-1.30) H 07/19/21 16:40 Est GFR (MDRD) Af Amer 44 (>60) L 07/19/21 16:40 Est GFR (MDRD) Non-Af 36 (>60) L 07/19/21 16:40 Glucose 147 mg/dL (65-99) H 07/19/21 16:40 Calcium 9.2 mg/dL (8.5-10.1) 07/19/21 16:40 Corrected Calcium 10.6 mg/dL (8.5-10.1) H 07/19/21 16:40 Total Bilirubin 0.50 mg/dL (0.2-1.0) 07/19/21 16:40 AST 29 Units/L (15-37) 07/19/21 16:40 ALT 29 Units/L (12-78) 07/19/21 16:40 Alkaline Phosphatase 100 Units/L (46-116) 07/19/21 16:40 Creatine Kinase 25 Units/L (39-308) L 07/19/21 16:40 CK-MB (CK-2) < 1.0 ng/mL (0-4.0) 07/19/21 16:40 CK/CKMB % Calc 4.0 % (<4) 07/19/21 16:40 Troponin I High Sens 27.2 ng/L (4.0-60.0) 07/19/21 16:40 B-Natriuretic Peptide 120 pg/mL (0-79) H 07/19/21 16:40 Total Protein 7.1 g/dL (6.4-8.2) 07/19/21 16:40 Albumin 2.3 g/dL (3.4-5.0) L 07/19/21 16:40 Globulin 4.8 g/dL (2.5-4.5) H 07/19/21 16:40 Albumin/Globulin Ratio 0.5 Ratio (1.1-2.1) L 07/19/21 16:40 Lipase 91 Units/L (73-393) 07/19/21 16:40 SARS CoV-2 RNA Rapid MIKE Negative (NEGATIVE) 07/19/21 18:42 EKG Rate: 81 Amonate: LAD Rhythm: NSR Block: None ST: Nonsp Opioid Opioid Risk Tool Age (Mathew box if 16-45): No History of Preadolescent Sexual Abuse: No Total: 0 Total Score Risk Category: Low Risk Copyright: Herman VERONICA predicting aberrant behaviors Diagnosis Discharge Problem: Hypoxia, Generalized weakness
--- NOTE | 2021-07-19 16:46 | RAD ---
HISTORY:Weakness, shortness of breath, coughStudy: Single view chestComparison:07/03/2021Findings:Single portable view submitted. No infiltrate, effusion, or pneumothorax identified.Cardiac silhouette is borderline enlarged.The soft tissues are intact .IMPRESSION:1.No acute cardiopulmonary abnormality.Electronically signed by: SANTO BENITEZ (Jul 19, 2021 16:45:02)
[2021-07-19 16:49] LABS: BASOPHILS # (AUTO) 0.1 X10^3/uL (0.0-0.1); BASOPHILS % (AUTO) 1.1 % (0.2-1.0); EOSINOPHILS # (AUTO) 0.2 x10^3/uL (0.0-0.2); HEMATOCRIT 35.6 % (42.0-54.0); HEMOGLOBIN 12.1 g/dL (13.5-18.0); LYMPHOCYTES # (AUTO) 1.1 X10^3/uL (1.3-2.9); LYMPHOCYTES % (AUTO) 12.8 % (21.0-51.0); MEAN CORPUSCULAR HEMOGLOBIN 31.5 pg (27.0-34.0); MEAN CORPUSCULAR HGB CONC 33.9 g/dL (33.0-35.0); MEAN CORPUSCULAR VOLUME 92.8 fL (80.0-100.0); MEAN PLATELET VOLUME 8.4 fL (7.4-11.0); MONOCYTES # (AUTO) 0.8 x10^3/uL (0.3-0.8); MONOCYTES % (AUTO) 9.7 % (0.0-13.0); NEUTROPHILS # (AUTO) 6.1 x10^3/uL (2.2-4.8); NEUTROPHILS % (AUTO) 73.4 % (42.0-75.0); RED BLOOD COUNT 3.83 X10^6/uL (4.7-6.0); RED CELL DISTRIBUTION WIDTH 14.1 % (11.6-16.5); WHITE BLOOD COUNT 8.3 X10^3/uL (3.6-10.0)
[2021-07-19 17:09] LABS: ALANINE AMINOTRANSFERASE 29 Units/L (12-78); ALBUMIN 2.3 g/dL (3.4-5.0); ALKALINE PHOSPHATASE 100 Units/L (46-116); ASPARTATE AMINO TRANSFERASE 29 Units/L (15-37); BLOOD UREA NITROGEN 37 mg/dL (7-18); CALCIUM 9.2 mg/dL (8.5-10.1); CARBON DIOXIDE 25.4 mmol/L (21-32); CHLORIDE 111 mmol/L (98-107); COR CA(FOR HYPOALB) 10.6 mg/dL (8.5-10.1); COR NA(FOR HYPERGLY) 145 mmol/L (136-145); CREATINE KINASE 25 Units/L (39-308); CREATINE KINASE MB < 1.0 ng/mL (0-4.0); CREATININE 1.89 mg/dL (0.70-1.30); LIPASE 91 Units/L (73-393); SODIUM 144 mmol/L (136-145); TOTAL PROTEIN 7.1 g/dL (6.4-8.2); eGFR NON BLACK RACES 36 (>60)
[2021-07-19] MEDS ORDERED: DECADRON INJ IVP SCH (19:00)
[2021-07-19] MEDS ORDERED: DECADRON INJ ONE (19:05)
[2021-07-19 22:41] VITALS: BMI 23.5
[2021-07-19] MEDS: ZOCOR TAB 20 MG PO SCH (23:26)
[2021-07-20 06:20] LABS: BASOPHILS % (AUTO) 0.3 % (0.2-1.0); HEMATOCRIT 34.5 % (42.0-54.0); HEMOGLOBIN 11.8 g/dL (13.5-18.0); LYMPHOCYTES # (AUTO) 0.9 X10^3/uL (1.3-2.9); LYMPHOCYTES % (AUTO) 13.2 % (21.0-51.0); MEAN CORPUSCULAR HEMOGLOBIN 31.3 pg (27.0-34.0); MEAN CORPUSCULAR VOLUME 92.1 fL (80.0-100.0); MEAN PLATELET VOLUME 8.6 fL (7.4-11.0); MONOCYTES # (AUTO) 0.1 x10^3/uL (0.3-0.8); NEUTROPHILS # (AUTO) 5.8 x10^3/uL (2.2-4.8); NEUTROPHILS % (AUTO) 84.5 % (42.0-75.0); RED BLOOD COUNT 3.75 X10^6/uL (4.7-6.0); RED CELL DISTRIBUTION WIDTH 13.9 % (11.6-16.5); WHITE BLOOD COUNT 6.9 X10^3/uL (3.6-10.0)
[2021-07-20 07:04] LABS: ALBUMIN 2.3 g/dL (3.4-5.0); CALCIUM 9.1 mg/dL (8.5-10.1); CARBON DIOXIDE 23.9 mmol/L (21-32); COR CA(FOR HYPOALB) 10.5 mg/dL (8.5-10.1); CREATININE 1.56 mg/dL (0.70-1.30); TOTAL PROTEIN 7.1 g/dL (6.4-8.2)
[2021-07-20] MEDS ORDERED: ASPIRIN 81 MG CHEWTAB ONE (08:29)
[2021-07-20] MEDS ORDERED: NORVASC TAB 5 MG ONE (08:29)
[2021-07-20] MEDS: ASPIRIN EC 81 MG PO SCH (08:59)
[2021-07-20] MEDS: NORVASC TAB 5 MG PO SCH (09:00)
[2021-07-20] MEDS ORDERED: DECADRON INJ IV SCH (09:00)
[2021-07-20] MEDS ORDERED: PATIENT'S HOME MEDICATION (Aspirin 81 mg Tablet) PO SCH (09:00)
[2021-07-20] MEDS: LOVENOX INJ 40 MG SYR SC SCH (09:05)
[2021-07-20] MEDS ORDERED: LOVENOX INJ 40 MG SYR SC ONE (09:05)
--- NOTE | 2021-07-20 10:57 | RAD ---
HISTORYRIGHT ANKLE PAINSTUDYANKLE, RIGHT x-ray three viewsCOMPARISONNoneFINDINGSLikely mild soft tissue swelling. Small vessel calcifications are seen in the soft tissues. No widening of the ankle mortise. No fracture or dislocation is seen. Mild arthritic changes are suspected in the midfoot. No calcaneal plantar spur.IMPRESSIONLikely mild soft tissue swelling.Likely mild arthritic changes in the midfoot.Electronically signed by: Mati Chen (Jul 20, 2021 10:56:38)
--- NOTE | 2021-07-20 12:22 | DR.H&P ---
H&P - History & Physical for Day of: H&P Date: 07/19/21 - Chief Complaint Chief Complaint: Weakness - History of Present Illness History of Present Illness: Patient is an 86 year old white male who was admitted due to generalized weakness. Patient lives with his younger elderly brother. Brother brings patient to hospital and states he can no longer care for all of the patients needs. Patient is not ambulatory. Patient is full assist with ADLs. Patient is incontinent of stool and urine. Patient has chronic spine issues with history of spine surgery and frequent falls at home. No changes in mentation from previous admit. Patient is alert however confused at times. History limited. PMH History of COVID, chronic low back pain, CAD. Care management for discharge planning; likely will need skilled nursing/rehab placement. Patient also complains of right foot tenderness (history of gout). - Past Medical History Past Medical History: Coronary Artery Disease, Hypertension - Past Surgical History Surgical History: Angioplasty/Stents, Cholecystectomy, Ortho Surgery - Family History Family Medical History: Cancer, [place], Hypertension - Social History Does patient currently use any type of tobacco product: No Have you used tobacco products in the last 12 months: No Type of Tobacco Use: None How many years tobacco product used: 40 Does any household member use tobacco: No Alcohol Use: None Drug Use: None - Medications Home Medications: JACKELIN Inhibitors Allergy (Verified 06/29/21 09:28) - Review of Systems Constitutional: See HPI Eyes: See HPI ENT: See HPI Respiratory: See HPI Cardiovascular: See HPI Gastrointestinal: See HPI Genitourinary: See HPI Musculoskeletal: See HPI Skin: See HPI Neurological: See HPI - Physical Exam Vital Signs: Temperature 97.9 F Pulse Rate [Right Brachial] 82 Pulse Rate 75 Respiratory Rate 21 Blood Pressure [Left Arm] 138/62 Blood Pressure 137/63 O2 Sat by Pulse Oximetry 98 Oriented: Person, Place Eyes: Normal Ear: Normal Nose: Normal Throat: Normal Respiratory: Diminished Throughout Cardiovascular: Normal : Normal, Other (incontinent ) Auscultation: Bowel Sounds: Normal, Other (incontinent ) Palpation: Normal Tenderness: Normal Skin: Decreased Turgur Musculoskeletal: Back:Thoracic, Back:Lumbar, Back:Midline, Instability (Generalized global weakness, not ambulatory, max assist) Psychiatric: Normal Mood Description: Calm Affect: Normal Speech Pattern: Clear, Appropriate - Assessment/Plan (1) Generalized weakness Status: Chronic Plan: Care management for discharge planning. PT. Cultures. Trend labs (2) Frequent falls Status: Chronic (3) Right foot pain Status: Acute Plan: Xray (4) Cellulitis of right foot Status: Acute Plan: Zosyn IV. Cultures. R/O out gout. Cont allopurinol. Uric acid level pending (5) History of coronary artery disease Status: Chronic (6) History of COVID-19 Status: Resolved (7) History of gout Status: Chronic - Allergies Allergies/Adverse Reactions: Allergies Allergy/AdvReac Type Severity Reaction Status Date / Time JACKELIN Inhibitors Allergy Verified 06/29/21 09:28
--- NOTE | 2021-07-20 12:39 | PCM.PROG ---
Progress Note - Subjective Subjective: Patient admitted as per HPI. IV abx added for cellulitis right foot. Imaging negative for acute fracture. No changes from previous. Care management for discharge planning. PT - Past Medical Family Social History Past Med/Fam/Surg Hx: No changes since H&P Allergies: Allergies JACKELIN Inhibitors Allergy (Verified 06/29/21 09:28) - Review of Systems ROS: No change since H&P - Vital Signs and I&O's Vital Signs: Temperature 97.9 F Pulse Rate [Right Brachial] 82 Pulse Rate 75 Respiratory Rate 21 Blood Pressure [Left Arm] 138/62 Blood Pressure 137/63 O2 Sat by Pulse Oximetry 98 Intake and Output: Intake & Output 07/17/21 07/18/21 07/19/21 07/20/21 23:59 23:59 23:59 23:59 Intake Total 100 / 100 100 / 100 Balance 100 / 100 100 / 100 - Physical Exam Oriented: Person, Place Eyes: Normal Ear: Normal Nose: Normal Throat: Normal Respiratory: Generalized, Rhonchi Cardiovascular: Normal : Normal, Other (incontinent ) Auscultation: Bowel Sounds: Normal, Other (incontinent ) Palpation: Normal Tenderness: Normal Skin: Decreased Turgur, Bruising (Bruising, redness and warmth to right foot. ) Musculoskeletal: Back:Thoracic, Back:Lumbar, Back:Midline, Instability (Generalized global weakness, not ambulatory, max assist) Psychiatric: Normal Mood Description: Calm Affect: Normal Speech Pattern: Clear, Appropriate - Laboratory and Diagnostics Result Diagrams: 07/20/21 06:02 07/20/21 06:02 Labs: Laboratory WBC 6.9 X10^3/uL (3.6-10.0) 07/20/21 06:02 RBC 3.75 X10^6/uL (4.7-6.0) L 07/20/21 06:02 Hgb 11.8 g/dL (13.5-18.0) L 07/20/21 06:02 Hct 34.5 % (42.0-54.0) L 07/20/21 06:02 MCV 92.1 fL (80.0-100.0) 07/20/21 06:02 MCH 31.3 pg (27.0-34.0) 07/20/21 06:02 MCHC 34.0 g/dL (33.0-35.0) 07/20/21 06:02 RDW 13.9 % (11.6-16.5) 07/20/21 06:02 Plt Count 302 X10^3/uL (150.0-450.0) 07/20/21 06:02 MPV 8.6 fL (7.4-11.0) 07/20/21 06:02 Neut % (Auto) 84.5 % (42.0-75.0) H 07/20/21 06:02 Lymph % (Auto) 13.2 % (21.0-51.0) L 07/20/21 06:02 [place] % (Auto) 2.0 % (0.0-13.0) 07/20/21 06:02 Eos % (Auto) 0.0 % (0.9-2.9) L 07/20/21 06:02 Baso % (Auto) 0.3 % (0.2-1.0) 07/20/21 06:02 Neut # (Auto) 5.8 x10^3/uL (2.2-4.8) H 07/20/21 06:02 Lymph # (Auto) 0.9 X10^3/uL (1.3-2.9) L 07/20/21 06:02 [place] # (Auto) 0.1 x10^3/uL (0.3-0.8) L 07/20/21 06:02 Eos # (Auto) 0.0 x10^3/uL (0.0-0.2) 07/20/21 06:02 Baso # (Auto) 0.0 X10^3/uL (0.0-0.1) 07/20/21 06:02 Absolute Nucleated RBC 0.0 /100WBC 07/20/21 06:02 D-Dimer 1.91 ug/ml (0.0-0.57) H* 07/19/21 16:40 Sodium 139 mmol/L (136-145) 07/20/21 06:02 Corrected Sodium 140 mmol/L (136-145) 07/20/21 06:02 Potassium 5.0 mmol/L (3.5-5.1) 07/20/21 06:02 Chloride 107 mmol/L (98-107) 07/20/21 06:02 Carbon Dioxide 23.9 mmol/L (21-32) 07/20/21 06:02 BUN 37 mg/dL (7-18) H 07/20/21 06:02 Creatinine 1.56 mg/dL (0.70-1.30) H 07/20/21 06:02 Est GFR (MDRD) Af Amer 55 (>60) L 07/20/21 06:02 Est GFR (MDRD) Non-Af 45 (>60) L 07/20/21 06:02 Glucose 160 mg/dL (65-99) H 07/20/21 06:02 POC Glucose (mg/dL) 137 mg/dL (65-99) H 07/19/21 22:04 Uric Acid 6.9 mg/dL (3.5-7.2) 07/20/21 06:02 Calcium 9.1 mg/dL (8.5-10.1) 07/20/21 06:02 Corrected Calcium 10.5 mg/dL (8.5-10.1) H 07/20/21 06:02 Total Bilirubin 0.40 mg/dL (0.2-1.0) 07/20/21 06:02 AST 35 Units/L (15-37) 07/20/21 06:02 ALT 36 Units/L (12-78) 07/20/21 06:02 Alkaline Phosphatase 99 Units/L (46-116) 07/20/21 06:02 Creatine Kinase 25 Units/L (39-308) L 07/19/21 16:40 CK-MB (CK-2) < 1.0 ng/mL (0-4.0) 07/19/21 16:40 CK/CKMB % Calc 4.0 % (<4) 07/19/21 16:40 Troponin I High Sens 27.2 ng/L (4.0-60.0) 07/19/21 16:40 B-Natriuretic Peptide 120 pg/mL (0-79) H 07/19/21 16:40 Total Protein 7.1 g/dL (6.4-8.2) 07/20/21 06:02 Albumin 2.3 g/dL (3.4-5.0) L 07/20/21 06:02 Globulin 4.8 g/dL (2.5-4.5) H 07/20/21 06:02 Albumin/Globulin Ratio 0.5 Ratio (1.1-2.1) L 07/20/21 06:02 Lipase 91 Units/L (73-393) 07/19/21 16:40 SARS CoV-2 RNA Rapid MIKE Negative (NEGATIVE) 07/19/21 18:42 - Plan (1) Generalized weakness Status: Chronic Plan: Care management for discharge planning. PT. Cultures. Trend labs (2) Frequent falls Status: Chronic (3) Right foot pain Status: Acute Plan: Xray (4) Cellulitis of right foot Status: Acute Plan: Zosyn IV. Cultures. R/O out gout. Cont allopurinol. Uric acid level pending (5) History of coronary artery disease Status: Chronic Plan: home meds (6) History of COVID-19 Status: Resolved (7) History of gout Status: Chronic
[2021-07-20 13:35] LABS: ABG BASE EXCESS -1.6 mmol/L (-2.0-2.0); ABG HCO3 21.1 mmol/L (22-26)
[2021-07-20 13:36] LABS: ABG ALLEN TEST POS
[2021-07-20] MEDS: ZOSYN VIAL 3.375 GRAMS 3.375 G in NS 100 ML IV + SPIKE MINIBAG* 100 ML IV SCH ×3 (14:21→21:38)
[2021-07-20] MEDS: COREG TAB 25 MG PO SCH (14:51)
[2021-07-20] MEDS ORDERED: NS 100 ML IV 100 ML ONE (14:59)
[2021-07-20] MEDS: ZOCOR TAB 20 MG PO SCH (21:36)
[2021-07-21] MEDS: COREG TAB 25 MG PO SCH ×2 (00:57→12:33)
[2021-07-21] MEDS: ZOSYN VIAL 3.375 GRAMS 3.375 G in NS 100 ML IV + SPIKE MINIBAG* 100 ML IV SCH ×3 (05:35→21:45)
[2021-07-21 06:55] LABS: BASOPHILS % (AUTO) 0.3 % (0.2-1.0); EOSINOPHILS % (AUTO) 0.3 % (0.9-2.9); HEMATOCRIT 29.9 % (42.0-54.0); HEMOGLOBIN 10.2 g/dL (13.5-18.0); LYMPHOCYTES # (AUTO) 1.7 X10^3/uL (1.3-2.9); LYMPHOCYTES % (AUTO) 19.5 % (21.0-51.0); MEAN CORPUSCULAR HEMOGLOBIN 31.6 pg (27.0-34.0); MEAN CORPUSCULAR HGB CONC 33.9 g/dL (33.0-35.0); MEAN CORPUSCULAR VOLUME 93.1 fL (80.0-100.0); MEAN PLATELET VOLUME 8.9 fL (7.4-11.0); MONOCYTES # (AUTO) 0.5 x10^3/uL (0.3-0.8); MONOCYTES % (AUTO) 5.4 % (0.0-13.0); NEUTROPHILS # (AUTO) 6.5 x10^3/uL (2.2-4.8); NEUTROPHILS % (AUTO) 74.5 % (42.0-75.0); RED BLOOD COUNT 3.22 X10^6/uL (4.7-6.0); RED CELL DISTRIBUTION WIDTH 13.5 % (11.6-16.5); WHITE BLOOD COUNT 8.7 X10^3/uL (3.6-10.0)
[2021-07-21 07:16] LABS: CALCIUM 8.5 mg/dL (8.5-10.1); CARBON DIOXIDE 24.3 mmol/L (21-32); COR CA(FOR HYPOALB) 10.1 mg/dL (8.5-10.1); CREATININE 1.8 mg/dL (0.70-1.30); TOTAL PROTEIN 6.2 g/dL (6.4-8.2)
[2021-07-21] MEDS: ASPIRIN EC 81 MG PO SCH (08:53)
[2021-07-21] MEDS: ZYLOPRIM PO SCH (08:54)
[2021-07-21] MEDS: NORVASC TAB 5 MG PO SCH (08:54)
[2021-07-21] MEDS: LOVENOX INJ 40 MG SYR SC SCH (08:54)
--- NOTE | 2021-07-21 17:50 | PCM.PROG ---
Progress Note - Progress Note for Day of Date of Exam: 07/21/21 - Subjective Subjective: IS A 86 YEAR OLD PATIENT OF . HE WAS ADMITTED FOR TREATMENT OF RIGHT FOOT CELLULITIS, GENERALIZED WEAKNESS, AND FREQUENT FALLS. PATIENTS BROTHER DROPPED HIM OFF AT THE ER ON 07/19 AND REPORTS THAT HE IS NO LONGER ABLE TO CARE FOR HIM AT HOME. PATIENT REQUIRES FULL ASSISTANCE WITH ADLs. HE IS INCONTINENT OF STOOL AND URINE. PATIENT WAS REPORTEDLY POSITIVE FOR COVID-19 TWO WEEKS AGO. HE WAS HOSPITALIZED AT THAT TIME. ON MORNING ROUNDS, PATIENT IS ALERT, BUT DISORIENTED. ON EXAMINATION, HEART IS REGULAR IN RATE AND RHYTHM. BILATERAL LUNGS ARE NOTED WITH DIMINISHED LUNG SOUNDS THROUGHOUT. ABDOMEN IS ROUND, SOFT, AND NON-TENDER WITH NORMAL BOWEL SOUNDS NOTED IN ALL QU ADRANTS. RIGHT FOOT CONTINUES TO HAVE NON-PITTING EDEMA AND REDNESS TODAY. HIS VITALS THIS MORNING ARE: 97.5-60-22-100%-142/65. LABS WERE OBTAINED. ABNORMAL LAB VALUES INCLUDE THE FOLLOWING: RBC 3.22, HGB 10.2, HCT 29.9, CHLORIDE 110, BUN 37, CREATININE 1.80, GLUCOSE 117, AST 50, TOTAL PROTEIN 6.2, ALBUMIN 2.0. BLOOD CULTURES ARE PENDING. HE IS CURRENTLY RECEIVING ZOSYN 3.375G IV TID, LOVENOX 40MG SC DAILY, TRAMADOL 50MG PO Q6H PRN, AND HIS HOME MEDICATIONS WERE RESUMED. CASE MANAGEMENT IS ARRANGING PLACEMENT FOR LONG-TERM CARE. OTHERWISE, WE WILL CONTINUE WITH CURRENT PLAN OF CARE. WE PLAN TO FOLLOW UP WITH AM LABS AND CONTINUE TO MONITOR. TIME SPENT ON CLINICAL ASSESSMENT, REVIEWING LABS AND IMAGING, DECISION MAKING, AND DOCUMENTATION WAS GREATER THAN 45 MINUTES. - Past Medical Family Social History Past Med/Fam/Surg Hx: No changes since H&P Allergies: Allergies JACKELIN Inhibitors Allergy (Verified 06/29/21 09:28) - Review of Systems ROS: No change since H&P - Vital Signs and I&O's Vital Signs: Temperature 97.8 F Pulse Rate [Right Brachial] 59 Pulse Rate 75 Respiratory Rate 20 Blood Pressure [Left Arm] 145/65 Blood Pressure 137/63 O2 Sat by Pulse Oximetry 99 Intake and Output: Intake & Output 07/19/21 07/20/21 07/21/21 07/22/21 11:59 11:59 11:59 11:59 Intake Total 200 / 200 1043 / 1043 910 / 910 Balance 200 / 200 1043 / 1043 910 / 910 - Physical Exam Oriented: Person, Place Eyes: Normal Ear: Normal Nose: Normal Throat: Normal Respiratory: Generalized, Rhonchi Cardiovascular: Normal : Normal, Other (incontinent ) Auscultation: Bowel Sounds: Normal, Other (incontinent ) Tenderness: Normal Skin: Decreased Turgur, Bruising (Bruising, redness and warmth to right foot. ) Musculoskeletal: Back:Thoracic, Back:Lumbar, Back:Midline, Instability (Generalized global weakness, not ambulatory, max assist) Psychiatric: Normal Mood Description: Calm Affect: Normal Speech Pattern: Clear - Laboratory and Diagnostics Result Diagrams: 07/21/21 06:08 07/21/21 06:08 Labs: Laboratory WBC 8.7 X10^3/uL (3.6-10.0) 07/21/21 06:08 RBC 3.22 X10^6/uL (4.7-6.0) L 07/21/21 06:08 Hgb 10.2 g/dL (13.5-18.0) L 07/21/21 06:08 Hct 29.9 % (42.0-54.0) L 07/21/21 06:08 MCV 93.1 fL (80.0-100.0) 07/21/21 06:08 MCH 31.6 pg (27.0-34.0) 07/21/21 06:08 MCHC 33.9 g/dL (33.0-35.0) 07/21/21 06:08 RDW 13.5 % (11.6-16.5) 07/21/21 06:08 Plt Count 285 X10^3/uL (150.0-450.0) 07/21/21 06:08 MPV 8.9 fL (7.4-11.0) 07/21/21 06:08 Neut % (Auto) 74.5 % (42.0-75.0) 07/21/21 06:08 Lymph % (Auto) 19.5 % (21.0-51.0) L 07/21/21 06:08 [place] % (Auto) 5.4 % (0.0-13.0) 07/21/21 06:08 Eos % (Auto) 0.3 % (0.9-2.9) L 07/21/21 06:08 Baso % (Auto) 0.3 % (0.2-1.0) 07/21/21 06:08 Neut # (Auto) 6.5 x10^3/uL (2.2-4.8) H 07/21/21 06:08 Lymph # (Auto) 1.7 X10^3/uL (1.3-2.9) 07/21/21 06:08 [place] # (Auto) 0.5 x10^3/uL (0.3-0.8) 07/21/21 06:08 Eos # (Auto) 0.0 x10^3/uL (0.0-0.2) 07/21/21 06:08 Baso # (Auto) 0.0 X10^3/uL (0.0-0.1) 07/21/21 06:08 Absolute Nucleated RBC 0.1 /100WBC 07/21/21 06:08 D-Dimer 1.91 ug/ml (0.0-0.57) H* 07/19/21 16:40 Sample Site Rrad 07/20/21 13:28 ABG pH 7.470 (7.35-7.45) H 07/20/21 13:28 ABG pCO2 29.0 mmHg (35.0-45.0) L 07/20/21 13:28 ABG pO2 70.0 mmHg (80.0-100.0) L 07/20/21 13:28 ABG HCO3 21.1 mmol/L (22-26) L 07/20/21 13:28 ABG O2 Saturation 95.0 % (90-100) 07/20/21 13:28 ABG Base Excess -1.6 mmol/L (-2.0-2.0) 07/20/21 13:28 Sha Test Pos 07/20/21 13:28 A-a Gradient 43.0 mmHg 07/20/21 13:28 FiO2 21.0 07/20/21 13:28 Blood Gas Comments Everardo well 07/20/21 13:28 Sodium 142 mmol/L (136-145) 07/21/21 06:08 Corrected Sodium 142 mmol/L (136-145) 07/21/21 06:08 Potassium 4.4 mmol/L (3.5-5.1) 07/21/21 06:08 Chloride 110 mmol/L (98-107) H 07/21/21 06:08 Carbon Dioxide 24.3 mmol/L (21-32) 07/21/21 06:08 BUN 37 mg/dL (7-18) H 07/21/21 06:08 Creatinine 1.80 mg/dL (0.70-1.30) H 07/21/21 06:08 Est GFR (MDRD) Af Amer 46 (>60) L 07/21/21 06:08 Est GFR (MDRD) Non-Af 38 (>60) L 07/21/21 06:08 Glucose 117 mg/dL (65-99) H 07/21/21 06:08 POC Glucose (mg/dL) 137 mg/dL (65-99) H 07/19/21 22:04 Uric Acid 6.7 mg/dL (3.5-7.2) 07/20/21 12:48 Calcium 8.5 mg/dL (8.5-10.1) 07/21/21 06:08 Corrected Calcium 10.1 mg/dL (8.5-10.1) 07/21/21 06:08 Total Bilirubin 0.30 mg/dL (0.2-1.0) 07/21/21 06:08 AST 50 Units/L (15-37) H 07/21/21 06:08 ALT 56 Units/L (12-78) 07/21/21 06:08 Alkaline Phosphatase 101 Units/L (46-116) 07/21/21 06:08 Creatine Kinase 25 Units/L (39-308) L 07/19/21 16:40 CK-MB (CK-2) < 1.0 ng/mL (0-4.0) 07/19/21 16:40 CK/CKMB % Calc 4.0 % (<4) 07/19/21 16:40 Troponin I High Sens 27.2 ng/L (4.0-60.0) 07/19/21 16:40 B-Natriuretic Peptide 120 pg/mL (0-79) H 07/19/21 16:40 Total Protein 6.2 g/dL (6.4-8.2) L 07/21/21 06:08 Albumin 2.0 g/dL (3.4-5.0) L 07/21/21 06:08 Globulin 4.2 g/dL (2.5-4.5) 07/21/21 06:08 Albumin/Globulin Ratio 0.5 Ratio (1.1-2.1) L 07/21/21 06:08 Lipase 91 Units/L (73-393) 07/19/21 16:40 SARS CoV-2 RNA Rapid MIKE Negative (NEGATIVE) 07/19/21 18:42 - Plan (1) Cellulitis of right foot Status: Acute Plan: Zosyn IV. Cultures. R/O out gout. Cont allopurinol. Uric acid level pending (2) Right foot pain Status: Acute Plan: Xray (3) COVID-19 virus infection Status: Acute (4) Generalized weakness Status: Chronic Plan: Care management for discharge planning. PT. Cultures. Trend labs (5) HTN (hypertension) Status: Chronic Qualifiers: Hypertension type: unspecified Qualified Code(s): I10 - Essential (primary) hypertension (6) CKD (chronic kidney disease) Status: Chronic Qualifiers: Chronic kidney disease stage: unspecified stage Qualified Code(s): N18.9 - Chronic kidney disease, unspecified (7) History of coronary artery disease Status: Chronic Plan: home meds (8) History of gout Status: Chronic
[2021-07-21] MEDS: ZOCOR TAB 20 MG PO SCH (21:45)
[2021-07-22] MEDS: COREG TAB 25 MG PO SCH ×2 (01:00→13:49)
[2021-07-22] MEDS: ZOSYN VIAL 3.375 GRAMS 3.375 G in NS 100 ML IV + SPIKE MINIBAG* 100 ML IV SCH ×3 (05:36→21:12)
[2021-07-22 06:42] LABS: BASOPHILS % (AUTO) 0.5 % (0.2-1.0); EOSINOPHILS # (AUTO) 0.2 x10^3/uL (0.0-0.2); EOSINOPHILS % (AUTO) 3.4 % (0.9-2.9); HEMATOCRIT 32.2 % (42.0-54.0); HEMOGLOBIN 10.8 g/dL (13.5-18.0); LYMPHOCYTES # (AUTO) 2.4 X10^3/uL (1.3-2.9); LYMPHOCYTES % (AUTO) 38.9 % (21.0-51.0); MEAN CORPUSCULAR HEMOGLOBIN 31.3 pg (27.0-34.0); MEAN CORPUSCULAR HGB CONC 33.6 g/dL (33.0-35.0); MEAN CORPUSCULAR VOLUME 93.1 fL (80.0-100.0); MEAN PLATELET VOLUME 8.7 fL (7.4-11.0); MONOCYTES # (AUTO) 0.5 x10^3/uL (0.3-0.8); MONOCYTES % (AUTO) 8.8 % (0.0-13.0); NEUTROPHILS # (AUTO) 2.9 x10^3/uL (2.2-4.8); NEUTROPHILS % (AUTO) 48.4 % (42.0-75.0); RED BLOOD COUNT 3.46 X10^6/uL (4.7-6.0); RED CELL DISTRIBUTION WIDTH 13.8 % (11.6-16.5); WHITE BLOOD COUNT 6.1 X10^3/uL (3.6-10.0)
[2021-07-22 07:04] LABS: ALANINE AMINOTRANSFERASE 43 Units/L (12-78); ALKALINE PHOSPHATASE 103 Units/L (46-116); ASPARTATE AMINO TRANSFERASE 29 Units/L (15-37); BLOOD UREA NITROGEN 31 mg/dL (7-18); CALCIUM 8.1 mg/dL (8.5-10.1); CARBON DIOXIDE 24.7 mmol/L (21-32); CHLORIDE 110 mmol/L (98-107); COR CA(FOR HYPOALB) 9.7 mg/dL (8.5-10.1); CREATININE 1.63 mg/dL (0.70-1.30); SODIUM 142 mmol/L (136-145); eGFR NON BLACK RACES 43 (>60)
[2021-07-22] MEDS: ASPIRIN EC 81 MG PO SCH (08:14)
[2021-07-22] MEDS: ZYLOPRIM PO SCH (08:14)
[2021-07-22] MEDS: NORVASC TAB 5 MG PO SCH (08:14)
[2021-07-22] MEDS: LOVENOX INJ 40 MG SYR SC SCH (08:14)
--- NOTE | 2021-07-22 08:47 | PCM.PROG ---
Progress Note - Progress Note for Day of Date of Exam: 07/22/21 - Subjective Subjective: IS A 86 YEAR OLD PATIENT OF . HE WAS ADMITTED FOR TREATMENT OF RIGHT FOOT CELLULITIS, GENERALIZED WEAKNESS, AND FREQUENT FALLS. PATIENTS BROTHER DROPPED HIM OFF AT THE ER ON 07/19 AND REPORTS THAT HE IS NO LONGER ABLE TO CARE FOR HIM AT HOME. PATIENT REQUIRES FULL ASSISTANCE WITH ADLs. HE IS INCONTINENT OF STOOL AND URINE. PATIENT WAS REPORTEDLY POSITIVE FOR COVID-19 TWO WEEKS AGO. HE WAS HOSPITALIZED AT THAT TIME. ON MORNING ROUNDS, PATIENT IS ALERT, BUT DISORIENTED. ON EXAMINATION, HEART IS REGULAR IN RATE AND RHYTHM. BILATERAL LUNGS ARE NOTED WITH DIMINISHED LUNG SOUNDS THROUGHOUT. ABDOMEN IS ROUND, SOFT, AND NON-TENDER WITH NORMAL BOWEL SOUNDS NOTED IN ALL QU ADRANTS. RIGHT FOOT CONTINUES TO HAVE NON-PITTING EDEMA AND REDNESS TODAY. HIS VITALS THIS MORNING ARE: 97.7-59-18-97%-127/59. LABS WERE OBTAINED. ABNORMAL LAB VALUES INCLUDE THE FOLLOWING: RBC 3.46, HGB 10.8, HCT 32.2, CHLORIDE 110, BUN 31, CREATININE 1.63, CALCIUM 8.1, TOTAL PROTEIN 6.0, ALBUMIN 2.0. BLOOD CULTURES ARE PENDING. HE IS CURRENTLY RECEIVING ZOSYN 3.375G IV TID, LOVENOX 40MG SC DAILY, TRAMADOL 50MG PO Q6H PRN, AND HIS HOME MEDICATIONS WERE RESUMED. CASE MANAGEMENT IS ARRANGING PLACEMENT FOR CORRECTION CARE. OTHERWISE, WE WILL CONTINUE WITH CURRENT PLAN OF CARE. WE PLAN TO FOLLOW UP WITH AM LABS AND CONTINUE TO MONITOR. TIME SPENT ON CLINICAL ASSESSMENT, REVIEWING LABS AND IMAGING, DECISION MAKING, AND DOCUMENTATION WAS GREATER THAN 45 MINUTES. - Past Medical Family Social History Past Med/Fam/Surg Hx: No changes since H&P Allergies: Allergies JACKELIN Inhibitors Allergy (Verified 06/29/21 09:28) - Review of Systems ROS: No change since H&P - Vital Signs and I&O's Vital Signs: Temperature 97.7 F Pulse Rate [Right Brachial] 59 Pulse Rate 75 Respiratory Rate 18 Blood Pressure [Left Arm] 127/59 Blood Pressure 137/63 O2 Sat by Pulse Oximetry 97 Intake and Output: Intake & Output 07/19/21 07/20/21 07/21/21 07/22/21 11:59 11:59 11:59 11:59 Intake Total 200 / 200 1043 / 1043 1796 / 179 Balance 200 / 200 1043 / 1043 1796 - Physical Exam Oriented: Person, Place Eyes: Normal Ear: Normal Nose: Normal Throat: Normal Respiratory: Generalized, Rhonchi Cardiovascular: Normal : Normal, Other (incontinent ) Auscultation: Bowel Sounds: Normal, Other (incontinent ) Tenderness: Normal Skin: Decreased Turgur, Bruising (Bruising, redness and warmth to right foot. ) Musculoskeletal: Back:Thoracic, Back:Lumbar, Back:Midline, Instability (Generalized global weakness, not ambulatory, max assist) Psychiatric: Normal Mood Description: Calm Affect: Normal Speech Pattern: Clear - Laboratory and Diagnostics Result Diagrams: 07/22/21 06:02 07/22/21 06:02 Labs: Laboratory WBC 6.1 X10^3/uL (3.6-10.0) 07/22/21 06:02 RBC 3.46 X10^6/uL (4.7-6.0) L 07/22/21 06:02 Hgb 10.8 g/dL (13.5-18.0) L 07/22/21 06:02 Hct 32.2 % (42.0-54.0) L 07/22/21 06:02 MCV 93.1 fL (80.0-100.0) 07/22/21 06:02 MCH 31.3 pg (27.0-34.0) 07/22/21 06:02 MCHC 33.6 g/dL (33.0-35.0) 07/22/21 06:02 RDW 13.8 % (11.6-16.5) 07/22/21 06:02 Plt Count 309 X10^3/uL (150.0-450.0) 07/22/21 06:02 MPV 8.7 fL (7.4-11.0) 07/22/21 06:02 Neut % (Auto) 48.4 % (42.0-75.0) 07/22/21 06:02 Lymph % (Auto) 38.9 % (21.0-51.0) 07/22/21 06:02 [place] % (Auto) 8.8 % (0.0-13.0) 07/22/21 06:02 Eos % (Auto) 3.4 % (0.9-2.9) H 07/22/21 06:02 Baso % (Auto) 0.5 % (0.2-1.0) 07/22/21 06:02 Neut # (Auto) 2.9 x10^3/uL (2.2-4.8) 07/22/21 06:02 Lymph # (Auto) 2.4 X10^3/uL (1.3-2.9) 07/22/21 06:02 [place] # (Auto) 0.5 x10^3/uL (0.3-0.8) 07/22/21 06:02 Eos # (Auto) 0.2 x10^3/uL (0.0-0.2) 07/22/21 06:02 Baso # (Auto) 0.0 X10^3/uL (0.0-0.1) 07/22/21 06:02 Absolute Nucleated RBC 0.1 /100WBC 07/22/21 06:02 D-Dimer 1.91 ug/ml (0.0-0.57) H* 07/19/21 16:40 Sample Site Rrad 07/20/21 13:28 ABG pH 7.470 (7.35-7.45) H 07/20/21 13:28 ABG pCO2 29.0 mmHg (35.0-45.0) L 07/20/21 13:28 ABG pO2 70.0 mmHg (80.0-100.0) L 07/20/21 13:28 ABG HCO3 21.1 mmol/L (22-26) L 07/20/21 13:28 ABG O2 Saturation 95.0 % (90-100) 07/20/21 13:28 ABG Base Excess -1.6 mmol/L (-2.0-2.0) 07/20/21 13:28 Sha Test Pos 07/20/21 13:28 A-a Gradient 43.0 mmHg 07/20/21 13:28 FiO2 21.0 07/20/21 13:28 Blood Gas Comments Everardo well 07/20/21 13:28 Sodium 142 mmol/L (136-145) 07/22/21 06:02 Corrected Sodium TNP 07/22/21 06:02 Potassium 4.3 mmol/L (3.5-5.1) 07/22/21 06:02 Chloride 110 mmol/L (98-107) H 07/22/21 06:02 Carbon Dioxide 24.7 mmol/L (21-32) 07/22/21 06:02 BUN 31 mg/dL (7-18) H 07/22/21 06:02 Creatinine 1.63 mg/dL (0.70-1.30) H 07/22/21 06:02 Est GFR (MDRD) Af Amer 52 (>60) L 07/22/21 06:02 Est GFR (MDRD) Non-Af 43 (>60) L 07/22/21 06:02 Glucose 81 mg/dL (65-99) 07/22/21 06:02 POC Glucose (mg/dL) 137 mg/dL (65-99) H 07/19/21 22:04 Uric Acid 6.7 mg/dL (3.5-7.2) 07/20/21 12:48 Calcium 8.1 mg/dL (8.5-10.1) L 07/22/21 06:02 Corrected Calcium 9.7 mg/dL (8.5-10.1) 07/22/21 06:02 Total Bilirubin 0.20 mg/dL (0.2-1.0) 07/22/21 06:02 AST 29 Units/L (15-37) 07/22/21 06:02 ALT 43 Units/L (12-78) 07/22/21 06:02 Alkaline Phosphatase 103 Units/L (46-116) 07/22/21 06:02 Creatine Kinase 25 Units/L (39-308) L 07/19/21 16:40 CK-MB (CK-2) < 1.0 ng/mL (0-4.0) 07/19/21 16:40 CK/CKMB % Calc 4.0 % (<4) 07/19/21 16:40 Troponin I High Sens 27.2 ng/L (4.0-60.0) 07/19/21 16:40 B-Natriuretic Peptide 120 pg/mL (0-79) H 07/19/21 16:40 Total Protein 6.0 g/dL (6.4-8.2) L 07/22/21 06:02 Albumin 2.0 g/dL (3.4-5.0) L 07/22/21 06:02 Globulin 4.0 g/dL (2.5-4.5) 07/22/21 06:02 Albumin/Globulin Ratio 0.5 Ratio (1.1-2.1) L 07/22/21 06:02 Lipase 91 Units/L (73-393) 07/19/21 16:40 SARS CoV-2 RNA Rapid MIKE Negative (NEGATIVE) 07/19/21 18:42 - Plan (1) Cellulitis of right foot Status: Acute Plan: Zosyn IV. Cultures. R/O out gout. Cont allopurinol. Uric acid level pending (2) Right foot pain Status: Acute Plan: Xray (3) COVID-19 virus infection Status: Acute (4) Generalized weakness Status: Chronic Plan: Care management for discharge planning. PT. Cultures. Trend labs (5) HTN (hypertension) Status: Chronic Qualifiers: Hypertension type: unspecified Qualified Code(s): I10 - Essential (primary) hypertension (6) CKD (chronic kidney disease) Status: Chronic Qualifiers: Chronic kidney disease stage: unspecified stage Qualified Code(s): N18.9 - Chronic kidney disease, unspecified (7) History of coronary artery disease Status: Chronic Plan: home meds (8) History of gout Status: Chronic
[2021-07-22] MEDS: ZOCOR TAB 20 MG PO SCH (20:46)
[2021-07-23] MEDS: COREG TAB 25 MG PO SCH ×2 (01:59→13:15)
[2021-07-23] MEDS: ZOSYN VIAL 3.375 GRAMS 3.375 G in NS 100 ML IV + SPIKE MINIBAG* 100 ML IV SCH ×3 (05:43→21:23)
[2021-07-23 06:12] LABS: BASOPHILS % (AUTO) 0.6 % (0.2-1.0); EOSINOPHILS # (AUTO) 0.4 x10^3/uL (0.0-0.2); EOSINOPHILS % (AUTO) 5.4 % (0.9-2.9); HEMATOCRIT 33.2 % (42.0-54.0); HEMOGLOBIN 11.3 g/dL (13.5-18.0); LYMPHOCYTES # (AUTO) 2.2 X10^3/uL (1.3-2.9); LYMPHOCYTES % (AUTO) 30.2 % (21.0-51.0); MEAN CORPUSCULAR HEMOGLOBIN 31.2 pg (27.0-34.0); MEAN CORPUSCULAR HGB CONC 33.9 g/dL (33.0-35.0); MONOCYTES # (AUTO) 0.8 x10^3/uL (0.3-0.8); MONOCYTES % (AUTO) 10.3 % (0.0-13.0); NEUTROPHILS # (AUTO) 3.9 x10^3/uL (2.2-4.8); NEUTROPHILS % (AUTO) 53.5 % (42.0-75.0); RED BLOOD COUNT 3.61 X10^6/uL (4.7-6.0); RED CELL DISTRIBUTION WIDTH 13.9 % (11.6-16.5); WHITE BLOOD COUNT 7.4 X10^3/uL (3.6-10.0)
[2021-07-23 06:36] LABS: ALANINE AMINOTRANSFERASE 58 Units/L (12-78); ALBUMIN 2.2 g/dL (3.4-5.0); ALKALINE PHOSPHATASE 123 Units/L (46-116); ASPARTATE AMINO TRANSFERASE 41 Units/L (15-37); BLOOD UREA NITROGEN 28 mg/dL (7-18); CALCIUM 8.2 mg/dL (8.5-10.1); CARBON DIOXIDE 26.8 mmol/L (21-32); CHLORIDE 112 mmol/L (98-107); COR CA(FOR HYPOALB) 9.6 mg/dL (8.5-10.1); CREATININE 1.65 mg/dL (0.70-1.30); SODIUM 144 mmol/L (136-145); TOTAL PROTEIN 6.3 g/dL (6.4-8.2); eGFR NON BLACK RACES 42 (>60)
[2021-07-23] MEDS: NORVASC TAB 5 MG PO SCH (09:04)
[2021-07-23] MEDS: LOVENOX INJ 40 MG SYR SC SCH (09:04)
[2021-07-23] MEDS: ASPIRIN EC 81 MG PO SCH (09:04)
[2021-07-23] MEDS: ZYLOPRIM PO SCH (09:05)
--- NOTE | 2021-07-23 18:24 | PCM.PROG ---
Progress Note - Subjective Subjective: IS A 86 YEAR OLD PATIENT WHO WAS ADMITTED FOR TREATMENT OF RIGHT FOOT CELLULITIS, GENERALIZED WEAKNESS, AND FREQUENT FALLS. PATIENTS BROTHER DROPPED HIM OFF AT THE ER ON 07/19 AND REPORTS THAT HE IS NO LONGER ABLE TO CARE FOR HIM AT HOME. PATIENT REQUIRES FULL ASSISTANCE WITH ADLs. HE IS INCONTINENT OF STOOL AND URINE. PATIENT WAS REPORTEDLY POSITIVE FOR COVID-19 TWO WEEKS AGO. HE WAS HOSPITALIZED AT THAT TIME. ON MORNING ROUNDS, PATIENT IS ALERT, BUT DISORIENTED. CASE MANAGEMENT IS ARRANGING PLACEMENT FOR SHOE STOCK ASSOCIATE CARE. OTHERWISE, WE WILL CONTINUE WITH CURRENT PLAN OF CARE. WE PLAN TO FOLLOW UP WITH AM LABS AND CONTINUE TO MONITOR. - Past Medical Family Social History Past Med/Fam/Surg Hx: No changes since H&P Allergies: Allergies JACKELIN Inhibitors Allergy (Verified 06/29/21 09:28) - Review of Systems ROS: No change since H&P - Vital Signs and I&O's Vital Signs: Temperature 98.4 F Pulse Rate [Left Brachial] 60 Pulse Rate [Right Brachial] 63 Pulse Rate 75 Respiratory Rate 20 Blood Pressure [Right Arm] 147/65 Blood Pressure [Left Arm] 135/63 Blood Pressure 137/63 O2 Sat by Pulse Oximetry 97 Intake and Output: Intake & Output 07/20/21 07/21/21 07/22/21 07/23/21 23:59 23:59 23:59 23:59 Intake Total 1143 / 1143 1035 / 1035 2011 1294 / 1294 Balance 1143 / 1143 1035 / 1035 2011 1294 / 1294 - Physical Exam Oriented: Person, Place Eyes: Normal Ear: Normal Nose: Normal Throat: Normal Respiratory: Generalized, Rhonchi Cardiovascular: Normal : Normal, Other (incontinent ) Auscultation: Bowel Sounds: Normal, Other (incontinent ) Palpation: Normal Tenderness: Normal Skin: Decreased Turgur, Bruising (Bruising, redness and warmth to right foot. ) Musculoskeletal: Back:Thoracic, Back:Lumbar, Back:Midline, Instability (Generalized global weakness, not ambulatory, max assist) Psychiatric: Normal Mood Description: Calm Affect: Normal Speech Pattern: Clear, Appropriate - Laboratory and Diagnostics Result Diagrams: 07/23/21 05:14 07/23/21 05:14 Labs: 07/20/21 12:48 Blood Blood Culture - Preliminary 07/20/21 12:41 Blood Blood Culture - Preliminary Laboratory WBC 7.4 X10^3/uL (3.6-10.0) 07/23/21 05:14 RBC 3.61 X10^6/uL (4.7-6.0) L 07/23/21 05:14 Hgb 11.3 g/dL (13.5-18.0) L 07/23/21 05:14 Hct 33.2 % (42.0-54.0) L 07/23/21 05:14 MCV 92.0 fL (80.0-100.0) 07/23/21 05:14 MCH 31.2 pg (27.0-34.0) 07/23/21 05:14 MCHC 33.9 g/dL (33.0-35.0) 07/23/21 05:14 RDW 13.9 % (11.6-16.5) 07/23/21 05:14 Plt Count 386 X10^3/uL (150.0-450.0) 07/23/21 05:14 MPV 9.0 fL (7.4-11.0) 07/23/21 05:14 Neut % (Auto) 53.5 % (42.0-75.0) 07/23/21 05:14 Lymph % (Auto) 30.2 % (21.0-51.0) 07/23/21 05:14 [place] % (Auto) 10.3 % (0.0-13.0) 07/23/21 05:14 Eos % (Auto) 5.4 % (0.9-2.9) H 07/23/21 05:14 Baso % (Auto) 0.6 % (0.2-1.0) 07/23/21 05:14 Neut # (Auto) 3.9 x10^3/uL (2.2-4.8) 07/23/21 05:14 Lymph # (Auto) 2.2 X10^3/uL (1.3-2.9) 07/23/21 05:14 [place] # (Auto) 0.8 x10^3/uL (0.3-0.8) 07/23/21 05:14 Eos # (Auto) 0.4 x10^3/uL (0.0-0.2) H 07/23/21 05:14 Baso # (Auto) 0.0 X10^3/uL (0.0-0.1) 07/23/21 05:14 Absolute Nucleated RBC 0.0 /100WBC 07/23/21 05:14 D-Dimer 1.91 ug/ml (0.0-0.57) H* 07/19/21 16:40 Sample Site Rrad 07/20/21 13:28 ABG pH 7.470 (7.35-7.45) H 07/20/21 13:28 ABG pCO2 29.0 mmHg (35.0-45.0) L 07/20/21 13:28 ABG pO2 70.0 mmHg (80.0-100.0) L 07/20/21 13:28 ABG HCO3 21.1 mmol/L (22-26) L 07/20/21 13:28 ABG O2 Saturation 95.0 % (90-100) 07/20/21 13:28 ABG Base Excess -1.6 mmol/L (-2.0-2.0) 07/20/21 13:28 Sha Test Pos 07/20/21 13:28 A-a Gradient 43.0 mmHg 07/20/21 13:28 FiO2 21.0 07/20/21 13:28 Blood Gas Comments Everardo well 07/20/21 13:28 Sodium 144 mmol/L (136-145) 07/23/21 05:14 Corrected Sodium TNP 07/23/21 05:14 Potassium 4.6 mmol/L (3.5-5.1) 07/23/21 05:14 Chloride 112 mmol/L (98-107) H 07/23/21 05:14 Carbon Dioxide 26.8 mmol/L (21-32) 07/23/21 05:14 BUN 28 mg/dL (7-18) H 07/23/21 05:14 Creatinine 1.65 mg/dL (0.70-1.30) H 07/23/21 05:14 Est GFR (MDRD) Af Amer 51 (>60) L 07/23/21 05:14 Est GFR (MDRD) Non-Af 42 (>60) L 07/23/21 05:14 Glucose 97 mg/dL (65-99) 07/23/21 05:14 POC Glucose (mg/dL) 137 mg/dL (65-99) H 07/19/21 22:04 Uric Acid 6.7 mg/dL (3.5-7.2) 07/20/21 12:48 Calcium 8.2 mg/dL (8.5-10.1) L 07/23/21 05:14 Corrected Calcium 9.6 mg/dL (8.5-10.1) 07/23/21 05:14 Total Bilirubin 0.20 mg/dL (0.2-1.0) 07/23/21 05:14 AST 41 Units/L (15-37) H 07/23/21 05:14 ALT 58 Units/L (12-78) 07/23/21 05:14 Alkaline Phosphatase 123 Units/L (46-116) H 07/23/21 05:14 Creatine Kinase 25 Units/L (39-308) L 07/19/21 16:40 CK-MB (CK-2) < 1.0 ng/mL (0-4.0) 07/19/21 16:40 CK/CKMB % Calc 4.0 % (<4) 07/19/21 16:40 Troponin I High Sens 27.2 ng/L (4.0-60.0) 07/19/21 16:40 B-Natriuretic Peptide 120 pg/mL (0-79) H 07/19/21 16:40 Total Protein 6.3 g/dL (6.4-8.2) L 07/23/21 05:14 Albumin 2.2 g/dL (3.4-5.0) L 07/23/21 05:14 Globulin 4.1 g/dL (2.5-4.5) 07/23/21 05:14 Albumin/Globulin Ratio 0.5 Ratio (1.1-2.1) L 07/23/21 05:14 Lipase 91 Units/L (73-393) 07/19/21 16:40 SARS CoV-2 RNA Rapid MIKE Negative (NEGATIVE) 07/19/21 18:42 - Plan (1) Generalized weakness Status: Chronic Plan: Care management for discharge planning. PT. Cultures. Trend labs (2) Frequent falls Status: Chronic (3) Right foot pain Status: Acute Plan: Xray (4) Cellulitis of right foot Status: Acute Plan: Zosyn IV. Cultures. URIC ACID NORMAL. Cont allopurinol (5) History of coronary artery disease Status: Chronic Plan: home meds (6) History of COVID-19 Status: Resolved (7) History of gout Status: Chronic
[2021-07-23] MEDS: ZOCOR TAB 20 MG PO SCH (20:53)
[2021-07-24] MEDS: COREG TAB 25 MG PO SCH ×2 (01:00→13:24)
[2021-07-24] MEDS: ZOSYN VIAL 3.375 GRAMS 3.375 G in NS 100 ML IV + SPIKE MINIBAG* 100 ML IV SCH ×3 (05:35→21:17)
[2021-07-24 05:56] LABS: ABG HCO3 21.8 mmol/L (22-26)
[2021-07-24 05:57] LABS: ABG ALLEN TEST POS
[2021-07-24 06:05] LABS: BASOPHILS % (AUTO) 0.5 % (0.2-1.0); EOSINOPHILS # (AUTO) 0.5 x10^3/uL (0.0-0.2); EOSINOPHILS % (AUTO) 6.1 % (0.9-2.9); HEMATOCRIT 34.6 % (42.0-54.0); HEMOGLOBIN 11.6 g/dL (13.5-18.0); LYMPHOCYTES # (AUTO) 2.5 X10^3/uL (1.3-2.9); LYMPHOCYTES % (AUTO) 31.5 % (21.0-51.0); MEAN CORPUSCULAR HGB CONC 33.6 g/dL (33.0-35.0); MEAN CORPUSCULAR VOLUME 92.3 fL (80.0-100.0); MEAN PLATELET VOLUME 8.7 fL (7.4-11.0); MONOCYTES # (AUTO) 0.7 x10^3/uL (0.3-0.8); MONOCYTES % (AUTO) 9.3 % (0.0-13.0); NEUTROPHILS # (AUTO) 4.2 x10^3/uL (2.2-4.8); NEUTROPHILS % (AUTO) 52.6 % (42.0-75.0); RED BLOOD COUNT 3.75 X10^6/uL (4.7-6.0); RED CELL DISTRIBUTION WIDTH 13.6 % (11.6-16.5); WHITE BLOOD COUNT 7.9 X10^3/uL (3.6-10.0)
[2021-07-24 06:16] LABS: ALANINE AMINOTRANSFERASE 51 Units/L (12-78); ALBUMIN 2.1 g/dL (3.4-5.0); ALKALINE PHOSPHATASE 127 Units/L (46-116); ASPARTATE AMINO TRANSFERASE 39 Units/L (15-37); BLOOD UREA NITROGEN 25 mg/dL (7-18); CALCIUM 8.3 mg/dL (8.5-10.1); CARBON DIOXIDE 24.6 mmol/L (21-32); CHLORIDE 108 mmol/L (98-107); COR CA(FOR HYPOALB) 9.8 mg/dL (8.5-10.1); CREATININE 1.61 mg/dL (0.70-1.30); SODIUM 139 mmol/L (136-145); TOTAL PROTEIN 6.3 g/dL (6.4-8.2); eGFR NON BLACK RACES 44 (>60)
--- NOTE | 2021-07-24 07:42 | RAD ---
HISTORYPneumoniaSTUDYAP chestCOMPARISONFebruary 2021FINDINGSHeart size normal and lungs clear of significant abnormality. Prominent soft tissue density at the cardiac apex consistent with epicardial fat pad. There is no evidence for localized pneumonia, atelectasis or CHF.IMPRESSIONElectronically signed by: LAURA HERNANDEZ (Jul 24, 2021 07:41:39)
[2021-07-24] MEDS: ZYLOPRIM PO SCH (08:30)
[2021-07-24] MEDS: ASPIRIN EC 81 MG PO SCH (08:30)
[2021-07-24] MEDS: NORVASC TAB 5 MG PO SCH (08:30)
[2021-07-24] MEDS: LOVENOX INJ 40 MG SYR SC SCH (08:31)
[2021-07-24] MEDS: ULTRAM PO PRN (13:34)
[2021-07-24] MEDS: ZOCOR TAB 20 MG PO SCH (21:17)
[2021-07-25] MEDS: COREG TAB 25 MG PO SCH ×2 (01:00→15:14)
--- NOTE | 2021-07-25 01:28 | PCM.PROG ---
Progress Note - Progress Note for Day of Date of Exam: 07/24/21 - Subjective Subjective: IS A 86 YEAR OLD PATIENT WHO WAS ADMITTED FOR TREATMENT OF RIGHT FOOT CELLULITIS, GENERALIZED WEAKNESS, AND FREQUENT FALLS. PATIENTS BROTHER DROPPED HIM OFF AT THE ER ON 07/19 AND REPORTS THAT HE IS NO LONGER ABLE TO CARE FOR HIM AT HOME. PATIENT REQUIRES FULL ASSISTANCE WITH ADLs. HE IS INCONTINENT OF STOOL AND URINE. PATIENT WAS REPORTEDLY POSITIVE FOR COVID-19 TWO WEEKS AGO. HE WAS HOSPITALIZED AT THAT TIME. ON MORNING ROUNDS, PATIENT IS ALERT, BUT DISORIENTED. CASE MANAGEMENT IS ARRANGING PLACEMENT FOR GLOBAL MANAGER CARE. OTHERWISE, WE WILL CONTINUE WITH CURRENT PLAN OF CARE. WE PLAN TO FOLLOW UP WITH AM LABS AND CONTINUE TO MONITOR. PENDING NURSING HOMEPLACEMENT IN AM - Past Medical Family Social History Past Med/Fam/Surg Hx: No changes since H&P Allergies: Allergies JACKELIN Inhibitors Allergy (Verified 06/29/21 09:28) - Review of Systems ROS: No change since H&P - Vital Signs and I&O's Vital Signs: Temperature 97.9 F Pulse Rate [Left Brachial] 69 Pulse Rate [Right Brachial] 57 Pulse Rate 75 Respiratory Rate 18 Blood Pressure [Right Arm] 116/57 Blood Pressure [Left Arm] 154/72 Blood Pressure 137/63 O2 Sat by Pulse Oximetry 97 Intake and Output: Intake & Output 07/22/21 07/23/21 07/24/21 07/25/21 23:59 23:59 23:59 23:59 Intake Total 2011 1031 / 1031 Balance 2011 1031 / 1031 - Physical Exam Oriented: Person, Place Eyes: Normal Ear: Normal Nose: Normal Throat: Normal Respiratory: Generalized, Rhonchi Cardiovascular: Normal : Normal, Other (incontinent ) Auscultation: Bowel Sounds: Normal, Other (incontinent ) Palpation: Normal Tenderness: Normal Skin: Decreased Turgur, Bruising (Bruising, redness and warmth to right foot. ) Musculoskeletal: Back:Thoracic, Back:Lumbar, Back:Midline, Instability (Generalized global weakness, not ambulatory, max assist) Psychiatric: Normal Mood Description: Calm Affect: Normal Speech Pattern: Clear - Laboratory and Diagnostics Result Diagrams: 07/24/21 05:28 07/24/21 05:28 Labs: 07/20/21 12:48 Blood Blood Culture - Preliminary 07/20/21 12:41 Blood Blood Culture - Preliminary Laboratory WBC 7.9 X10^3/uL (3.6-10.0) 07/24/21 05:28 RBC 3.75 X10^6/uL (4.7-6.0) L 07/24/21 05:28 Hgb 11.6 g/dL (13.5-18.0) L 07/24/21 05:28 Hct 34.6 % (42.0-54.0) L 07/24/21 05:28 MCV 92.3 fL (80.0-100.0) 07/24/21 05:28 MCH 31.0 pg (27.0-34.0) 07/24/21 05:28 MCHC 33.6 g/dL (33.0-35.0) 07/24/21 05:28 RDW 13.6 % (11.6-16.5) 07/24/21 05:28 Plt Count 371 X10^3/uL (150.0-450.0) 07/24/21 05:28 MPV 8.7 fL (7.4-11.0) 07/24/21 05:28 Neut % (Auto) 52.6 % (42.0-75.0) 07/24/21 05:28 Lymph % (Auto) 31.5 % (21.0-51.0) 07/24/21 05:28 [place] % (Auto) 9.3 % (0.0-13.0) 07/24/21 05:28 Eos % (Auto) 6.1 % (0.9-2.9) H 07/24/21 05:28 Baso % (Auto) 0.5 % (0.2-1.0) 07/24/21 05:28 Neut # (Auto) 4.2 x10^3/uL (2.2-4.8) 07/24/21 05:28 Lymph # (Auto) 2.5 X10^3/uL (1.3-2.9) 07/24/21 05:28 [place] # (Auto) 0.7 x10^3/uL (0.3-0.8) 07/24/21 05:28 Eos # (Auto) 0.5 x10^3/uL (0.0-0.2) H 07/24/21 05:28 Baso # (Auto) 0.0 X10^3/uL (0.0-0.1) 07/24/21 05:28 Absolute Nucleated RBC 0.1 /100WBC 07/24/21 05:28 D-Dimer 1.91 ug/ml (0.0-0.57) H* 07/19/21 16:40 Sample Site Lrad 07/24/21 05:54 ABG pH 7.470 (7.35-7.45) H 07/24/21 05:54 ABG pCO2 30.0 mmHg (35.0-45.0) L 07/24/21 05:54 ABG pO2 88.0 mmHg (80.0-100.0) 07/24/21 05:54 ABG HCO3 21.8 mmol/L (22-26) L 07/24/21 05:54 ABG O2 Saturation 97.0 % (90-100) 07/24/21 05:54 ABG Base Excess -1.0 mmol/L (-2.0-2.0) 07/24/21 05:54 Sha Test Pos 07/24/21 05:54 A-a Gradient 24.0 mmHg 07/24/21 05:54 FiO2 21.0 07/24/21 05:54 Blood Gas Comments Everardo well-mtf 07/24/21 05:54 Sodium 139 mmol/L (136-145) 07/24/21 05:28 Corrected Sodium TNP 07/24/21 05:28 Potassium 4.6 mmol/L (3.5-5.1) 07/24/21 05:28 Chloride 108 mmol/L (98-107) H 07/24/21 05:28 Carbon Dioxide 24.6 mmol/L (21-32) 07/24/21 05:28 BUN 25 mg/dL (7-18) H 07/24/21 05:28 Creatinine 1.61 mg/dL (0.70-1.30) H 07/24/21 05:28 Est GFR (MDRD) Af Amer 53 (>60) L 07/24/21 05:28 Est GFR (MDRD) Non-Af 44 (>60) L 07/24/21 05:28 Glucose 99 mg/dL (65-99) 07/24/21 05:28 POC Glucose (mg/dL) 137 mg/dL (65-99) H 07/19/21 22:04 Uric Acid 6.7 mg/dL (3.5-7.2) 07/20/21 12:48 Calcium 8.3 mg/dL (8.5-10.1) L 07/24/21 05:28 Corrected Calcium 9.8 mg/dL (8.5-10.1) 07/24/21 05:28 Total Bilirubin 0.30 mg/dL (0.2-1.0) 07/24/21 05:28 AST 39 Units/L (15-37) H 07/24/21 05:28 ALT 51 Units/L (12-78) 07/24/21 05:28 Alkaline Phosphatase 127 Units/L (46-116) H 07/24/21 05:28 Creatine Kinase 25 Units/L (39-308) L 07/19/21 16:40 CK-MB (CK-2) < 1.0 ng/mL (0-4.0) 07/19/21 16:40 CK/CKMB % Calc 4.0 % (<4) 07/19/21 16:40 Troponin I High Sens 27.2 ng/L (4.0-60.0) 07/19/21 16:40 B-Natriuretic Peptide 120 pg/mL (0-79) H 07/19/21 16:40 Total Protein 6.3 g/dL (6.4-8.2) L 07/24/21 05:28 Albumin 2.1 g/dL (3.4-5.0) L 07/24/21 05:28 Globulin 4.2 g/dL (2.5-4.5) 07/24/21 05:28 Albumin/Globulin Ratio 0.5 Ratio (1.1-2.1) L 07/24/21 05:28 Lipase 91 Units/L (73-393) 07/19/21 16:40 SARS CoV-2 RNA Rapid MIKE Negative (NEGATIVE) 07/19/21 18:42 - Plan (1) Generalized weakness Status: Chronic Plan: Care management for discharge planning. PT. Cultures. Trend labs (2) Frequent falls Status: Chronic (3) Right foot pain Status: Acute Plan: Xray (4) Cellulitis of right foot Status: Acute Plan: Zosyn IV. Cultures. URIC ACID NORMAL. Cont allopurinol (5) History of coronary artery disease Status: Chronic Plan: home meds (6) History of COVID-19 Status: Resolved (7) History of gout Status: Chronic
[2021-07-25] MEDS ORDERED: NS 250 ML IV 250 ML IV ONE (05:37)
[2021-07-25] MEDS: ZOSYN VIAL 3.375 GRAMS 3.375 G in NS 100 ML IV + SPIKE MINIBAG* 100 ML IV SCH ×3 (05:49→21:12)
[2021-07-25 06:17] LABS: BASOPHILS % (AUTO) 0.5 % (0.2-1.0); EOSINOPHILS # (AUTO) 0.4 x10^3/uL (0.0-0.2); EOSINOPHILS % (AUTO) 7.1 % (0.9-2.9); HEMATOCRIT 33.8 % (42.0-54.0); HEMOGLOBIN 11.3 g/dL (13.5-18.0); LYMPHOCYTES # (AUTO) 1.9 X10^3/uL (1.3-2.9); LYMPHOCYTES % (AUTO) 31.2 % (21.0-51.0); MEAN CORPUSCULAR HEMOGLOBIN 30.8 pg (27.0-34.0); MEAN CORPUSCULAR HGB CONC 33.4 g/dL (33.0-35.0); MEAN CORPUSCULAR VOLUME 92.2 fL (80.0-100.0); MEAN PLATELET VOLUME 8.3 fL (7.4-11.0); MONOCYTES # (AUTO) 0.5 x10^3/uL (0.3-0.8); MONOCYTES % (AUTO) 8.8 % (0.0-13.0); NEUTROPHILS # (AUTO) 3.2 x10^3/uL (2.2-4.8); NEUTROPHILS % (AUTO) 52.4 % (42.0-75.0); RED BLOOD COUNT 3.66 X10^6/uL (4.7-6.0); RED CELL DISTRIBUTION WIDTH 13.8 % (11.6-16.5); WHITE BLOOD COUNT 6.1 X10^3/uL (3.6-10.0)
[2021-07-25 06:45] LABS: ALANINE AMINOTRANSFERASE 154 Units/L (12-78); ALKALINE PHOSPHATASE 236 Units/L (46-116); ASPARTATE AMINO TRANSFERASE 160 Units/L (15-37); BLOOD UREA NITROGEN 23 mg/dL (7-18); CARBON DIOXIDE 21.8 mmol/L (21-32); CHLORIDE 112 mmol/L (98-107); COR CA(FOR HYPOALB) 9.6 mg/dL (8.5-10.1); SODIUM 145 mmol/L (136-145); TOTAL PROTEIN 5.8 g/dL (6.4-8.2); eGFR NON BLACK RACES 47 (>60)
--- NOTE | 2021-07-25 07:22 | RAD ---
HISTORYPNEUMONIASTUDYCHEST, 1 [id number]/08/2022.TECHNIQUEAP view of the chestFINDINGSThe cardiac and mediastinal contours appear stable. There is mild hazy opacity in the left midlung peripherally. No definite pleural effusion or pneumothorax. There are few nodular opacities in the right lung which have similar density to bone are likely calcified granulomas. For example 7 mm nodule in the right mid to lower lung.IMPRESSIONMild left midlung hazy opacity is nonspecific but may represent pneumonia.Electronically signed by: Abhishek Macias (Jul 25, 2021 07:21:46)
[2021-07-25] MEDS: ASPIRIN EC 81 MG PO SCH (09:05)
[2021-07-25] MEDS: ZYLOPRIM PO SCH (09:06)
[2021-07-25] MEDS: NORVASC TAB 5 MG PO SCH (09:07)
[2021-07-25] MEDS: ULTRAM PO PRN (09:07)
[2021-07-25] MEDS: LOVENOX INJ 40 MG SYR SC SCH (09:08)
[2021-07-25] MEDS: ZOCOR TAB 20 MG PO SCH (21:12)
[2021-07-26] MEDS: COREG TAB 25 MG PO SCH (01:49)
--- NOTE | 2021-07-26 02:40 | PCM.PROG ---
Progress Note - Progress Note for Day of Date of Exam: 07/25/21 - Subjective Subjective: IS A 86 YEAR OLD PATIENT WHO WAS ADMITTED FOR TREATMENT OF RIGHT FOOT CELLULITIS, GENERALIZED WEAKNESS, AND FREQUENT FALLS. PATIENTS BROTHER DROPPED HIM OFF AT THE ER ON 07/19 AND REPORTS THAT HE IS NO LONGER ABLE TO CARE FOR HIM AT HOME. PATIENT REQUIRES FULL ASSISTANCE WITH ADLs. HE IS INCONTINENT OF STOOL AND URINE. PATIENT WAS REPORTEDLY POSITIVE FOR COVID-19 TWO WEEKS AGO. HE WAS HOSPITALIZED AT THAT TIME. ON MORNING ROUNDS, PATIENT IS ALERT, BUT DISORIENTED. CASE MANAGEMENT IS ARRANGING PLACEMENT FOR SAP SENIOR DEVELOPER CARE. OTHERWISE, WE WILL CONTINUE WITH CURRENT PLAN OF CARE. WE PLAN TO FOLLOW UP WITH AM LABS AND CONTINUE TO MONITOR. PENDING NURSING HOMEPLACEMENT IN AM - Past Medical Family Social History Past Med/Fam/Surg Hx: No changes since H&P Allergies: Allergies JACKELIN Inhibitors Allergy (Verified 06/29/21 09:28) - Review of Systems ROS: No change since H&P - Vital Signs and I&O's Vital Signs: Temperature 98.5 F Pulse Rate [Left Brachial] 65 Pulse Rate [Right Brachial] 57 Pulse Rate 75 Respiratory Rate 18 Blood Pressure [Right Arm] 108/51 Blood Pressure [Left Arm] 154/72 Blood Pressure 137/63 O2 Sat by Pulse Oximetry 94 Intake and Output: Intake & Output 07/23/21 07/24/21 07/25/21 07/26/21 23:59 23:59 23:59 23:59 Intake Total 1862 1031 / 1031 867 / 867 400 / 400 Balance 1862 1031 / 1031 867 / 867 400 / 400 - Physical Exam Oriented: Person, Place Eyes: Normal Ear: Normal Nose: Normal Throat: Normal Respiratory: Generalized, Rhonchi Cardiovascular: Normal : Normal, Other (incontinent ) Auscultation: Bowel Sounds: Normal, Other (incontinent ) Tenderness: Normal Skin: Decreased [place], Bruising (Bruising, redness and warmth to right foot. ) Musculoskeletal: Back:Thoracic, Back:Lumbar, Back:Midline, Instability (Generalized global weakness, not ambulatory, max assist) Psychiatric: Normal Mood Description: Calm Affect: Normal Speech Pattern: Clear - Laboratory and Diagnostics Result Diagrams: 07/25/21 05:30 07/25/21 05:30 Labs: 07/20/21 12:48 Blood Blood Culture - Preliminary 07/20/21 12:41 Blood Blood Culture - Preliminary Laboratory WBC 6.1 X10^3/uL (3.6-10.0) 07/25/21 05:30 RBC 3.66 X10^6/uL (4.7-6.0) L 07/25/21 05:30 Hgb 11.3 g/dL (13.5-18.0) L 07/25/21 05:30 Hct 33.8 % (42.0-54.0) L 07/25/21 05:30 MCV 92.2 fL (80.0-100.0) 07/25/21 05:30 MCH 30.8 pg (27.0-34.0) 07/25/21 05:30 MCHC 33.4 g/dL (33.0-35.0) 07/25/21 05:30 RDW 13.8 % (11.6-16.5) 07/25/21 05:30 Plt Count 341 X10^3/uL (150.0-450.0) 07/25/21 05:30 MPV 8.3 fL (7.4-11.0) 07/25/21 05:30 Neut % (Auto) 52.4 % (42.0-75.0) 07/25/21 05:30 Lymph % (Auto) 31.2 % (21.0-51.0) 07/25/21 05:30 [place] % (Auto) 8.8 % (0.0-13.0) 07/25/21 05:30 Eos % (Auto) 7.1 % (0.9-2.9) H 07/25/21 05:30 Baso % (Auto) 0.5 % (0.2-1.0) 07/25/21 05:30 Neut # (Auto) 3.2 x10^3/uL (2.2-4.8) 07/25/21 05:30 Lymph # (Auto) 1.9 X10^3/uL (1.3-2.9) 07/25/21 05:30 [place] # (Auto) 0.5 x10^3/uL (0.3-0.8) 07/25/21 05:30 Eos # (Auto) 0.4 x10^3/uL (0.0-0.2) H 07/25/21 05:30 Baso # (Auto) 0.0 X10^3/uL (0.0-0.1) 07/25/21 05:30 Absolute Nucleated RBC 0.0 /100WBC 07/25/21 05:30 D-Dimer 1.91 ug/ml (0.0-0.57) H* 07/19/21 16:40 Sample Site Lrad 07/24/21 05:54 ABG pH 7.470 (7.35-7.45) H 07/24/21 05:54 ABG pCO2 30.0 mmHg (35.0-45.0) L 07/24/21 05:54 ABG pO2 88.0 mmHg (80.0-100.0) 07/24/21 05:54 ABG HCO3 21.8 mmol/L (22-26) L 07/24/21 05:54 ABG O2 Saturation 97.0 % (90-100) 07/24/21 05:54 ABG Base Excess -1.0 mmol/L (-2.0-2.0) 07/24/21 05:54 Sha Test Pos 07/24/21 05:54 A-a Gradient 24.0 mmHg 07/24/21 05:54 FiO2 21.0 07/24/21 05:54 Blood Gas Comments Everardo well-mtf 07/24/21 05:54 Sodium 145 mmol/L (136-145) 07/25/21 05:30 Corrected Sodium TNP 07/25/21 05:30 Potassium 4.1 mmol/L (3.5-5.1) 07/25/21 05:30 Chloride 112 mmol/L (98-107) H 07/25/21 05:30 Carbon Dioxide 21.8 mmol/L (21-32) 07/25/21 05:30 BUN 23 mg/dL (7-18) H 07/25/21 05:30 Creatinine 1.50 mg/dL (0.70-1.30) H 07/25/21 05:30 Est GFR (MDRD) Af Amer 57 (>60) L 07/25/21 05:30 Est GFR (MDRD) Non-Af 47 (>60) L 07/25/21 05:30 Glucose 108 mg/dL (65-99) H 07/25/21 05:30 POC Glucose (mg/dL) 137 mg/dL (65-99) H 07/19/21 22:04 Uric Acid 6.7 mg/dL (3.5-7.2) 07/20/21 12:48 Calcium 8.0 mg/dL (8.5-10.1) L 07/25/21 05:30 Corrected Calcium 9.6 mg/dL (8.5-10.1) 07/25/21 05:30 Total Bilirubin 1.10 mg/dL (0.2-1.0) H 07/25/21 05:30 AST 160 Units/L (15-37) H 07/25/21 05:30 ALT 154 Units/L (12-78) H 07/25/21 05:30 Alkaline Phosphatase 236 Units/L (46-116) H 07/25/21 05:30 Creatine Kinase 25 Units/L (39-308) L 07/19/21 16:40 CK-MB (CK-2) < 1.0 ng/mL (0-4.0) 07/19/21 16:40 CK/CKMB % Calc 4.0 % (<4) 07/19/21 16:40 Troponin I High Sens 27.2 ng/L (4.0-60.0) 07/19/21 16:40 B-Natriuretic Peptide 120 pg/mL (0-79) H 07/19/21 16:40 Total Protein 5.8 g/dL (6.4-8.2) L 07/25/21 05:30 Albumin 2.0 g/dL (3.4-5.0) L 07/25/21 05:30 Globulin 3.8 g/dL (2.5-4.5) 07/25/21 05:30 Albumin/Globulin Ratio 0.5 Ratio (1.1-2.1) L 07/25/21 05:30 Lipase 91 Units/L (73-393) 07/19/21 16:40 SARS CoV-2 RNA Rapid MIKE Negative (NEGATIVE) 07/19/21 18:42 - Plan (1) Generalized weakness Status: Chronic Plan: Care management for discharge planning. PT. Cultures. Trend labs (2) Frequent falls Status: Chronic (3) Right foot pain Status: Acute Plan: Xray (4) Cellulitis of right foot Status: Acute Plan: Zosyn IV. Cultures. URIC ACID NORMAL. Cont allopurinol (5) History of coronary artery disease Status: Chronic Plan: home meds (6) History of COVID-19 Status: Resolved (7) History of gout Status: Chronic
[2021-07-26] MEDS: ZOSYN VIAL 3.375 GRAMS 3.375 G in NS 100 ML IV + SPIKE MINIBAG* 100 ML IV SCH (05:16)
[2021-07-26 06:42] LABS: ALBUMIN 2.1 g/dL (3.4-5.0); CALCIUM 8.1 mg/dL (8.5-10.1); CARBON DIOXIDE 20.1 mmol/L (21-32); COR CA(FOR HYPOALB) 9.6 mg/dL (8.5-10.1); CREATININE 1.62 mg/dL (0.70-1.30); TOTAL PROTEIN 5.9 g/dL (6.4-8.2)
[2021-07-26 06:52] LABS: BASOPHILS # (AUTO) 0.1 X10^3/uL (0.0-0.1); BASOPHILS % (AUTO) 0.7 % (0.2-1.0); EOSINOPHILS # (AUTO) 0.4 x10^3/uL (0.0-0.2); EOSINOPHILS % (AUTO) 5.4 % (0.9-2.9); HEMATOCRIT 32.9 % (42.0-54.0); HEMOGLOBIN 11.1 g/dL (13.5-18.0); LYMPHOCYTES # (AUTO) 1.8 X10^3/uL (1.3-2.9); LYMPHOCYTES % (AUTO) 22.8 % (21.0-51.0); MEAN CORPUSCULAR HEMOGLOBIN 31.3 pg (27.0-34.0); MEAN CORPUSCULAR HGB CONC 33.8 g/dL (33.0-35.0); MEAN CORPUSCULAR VOLUME 92.5 fL (80.0-100.0); MEAN PLATELET VOLUME 8.8 fL (7.4-11.0); MONOCYTES # (AUTO) 0.8 x10^3/uL (0.3-0.8); MONOCYTES % (AUTO) 9.6 % (0.0-13.0); NEUTROPHILS % (AUTO) 61.5 % (42.0-75.0); RED BLOOD COUNT 3.55 X10^6/uL (4.7-6.0); WHITE BLOOD COUNT 8.1 X10^3/uL (3.6-10.0)
[2021-07-26 10:27] VITALS: BP 120/60
[2021-07-26] MEDS: ASPIRIN EC 81 MG PO SCH (10:29)
[2021-07-26] MEDS: NORVASC TAB 5 MG PO SCH (10:29)
[2021-07-26] MEDS: ZYLOPRIM PO SCH (10:29)
[2021-07-26] MEDS: LOVENOX INJ 40 MG SYR SC SCH (10:29)
[2021-07-26] MEDS ORDERED: ZOSYN IV SCH (22:00)
[2021-07-26] MEDS ORDERED: D5W IV SCH (22:00)
== END 2021-07-26 11:30 ==
LOC: U 16:07 → ER 16:07 → U 21:20 → MED/SURG 07-20 11:29
PROVIDERS: ADMIT Obstetrics & Gynecology Obstetrics; ATTEND Internal Medicine
DX: R09.02 Hypoxemia; Z20.822 Contact with and (suspected) exposure to COVID-19; R26.89 Other abnormalities of gait and mobility; R29.6 Repeated falls; R53.1 Weakness; L03.115 Cellulitis of right lower limb; I25.10 Atherosclerotic heart disease of native coronary artery without angina pectoris; I12.9 Hypertensive chronic kidney disease with stage 1 through stage 4 chronic kidney disease, or unspecified chronic kidney disease; L89.301 Pressure ulcer of unspecified buttock, stage 1; R79.1 Abnormal coagulation profile; M79.671 Pain in right foot; N18.9 Chronic kidney disease, unspecified; M1A.9XX0 Chronic gout, unspecified, without tophus (tophi); Z86.16 Personal history of COVID-19; R94.31 Abnormal electrocardiogram [ECG] [EKG]